=== PATIENT | male | born 1970 | race African-American/Black ===

== ENCOUNTER 2017-10-26 09:22 | Emergency (ER) | payer OTHER ==
[2017-10-26 09:54] VITALS: TEMP 97.5
[2017-10-26] MEDS ORDERED: methylPREDNISolone SOD SUCCI 125 MG/2 ML VIAL IM STA (10:16)
[2017-10-26] MEDS ORDERED: KETOROLAC 60 MG/2 ML VIAL IM STA (10:16)
--- NOTE | 2017-10-26 10:21 | ED ---
General Adult HPI - General Chief complaint: Extremity Problem,Nontraumatic Stated complaint: Knee pain Time Seen by Provider: 10/26/17 09:54 Source: patient, RN notes reviewed, old records reviewed Mode of arrival: ambulatory Limitations: no limitations - History of Present Illness Initial comments: Patient 47-year-old male who presents emergency room today with chief complaint of a gout flare. He states that he's had pain over the last 2 days to the left knee. He states he's felt pain like this in the past to this knee with a gout infection. Patient states that he did have lab work believes he was at [facility] a few years ago and he was told that it was gout. Patient states this does feel the same. Patient states he started some ibuprofen with little relief. Patient denies any injury or complaint. Patient denies any recent fever, chills, shortness of breath, chest pain, back pain, abdominal pain , nausea or vomiting, numbness or tingling, headaches or visual changes, or any other complaints. - Related Data Previous Rx's Medication Instructions Recorded Hydrocodone/Acetaminophen [[place] 1 each PO Q6HR PRN #12 tab 10/26/17 5-325] Ibuprofen [Motrin] 800 mg PO Q6HR #30 tab 10/26/17 predniSONE 60 mg PO DAILY 5 Days tab 10/26/17 Allergies Allergy/AdvReac Type Severity Reaction Status Date / Time No Known Allergies Allergy Verified 10/26/17 09:58 Review of Systems ROS Statement: Those systems with pertinent positive or pertinent negative responses have been documented in the HPI. ROS Other: All systems not noted in ROS Statement are negative. Past Medical History Past Medical History: No Reported History Additional Past Medical History / Comment(s): C/O of abd. pain. History of Any Multi-Drug Resistant Organisms: None Reported Past Surgical History: No Surgical Hx Reported Additional Past Surgical History / Comment(s): Bilat. Carpal Tunnel Past Anesthesia/Blood Transfusion Reactions: No Reported Reaction Past Psychological History: No Psychological Hx Reported Smoking Status: Former smoker - Past Family History Mother Family Medical History: No Reported History General Exam - General Exam Comments Initial Comments: General: The patient is awake and alert, in no distress, and does not appear acutely ill. Neck: The neck is supple, there is no tenderness or JVD. Cardiovascular: There is a regular rate and rhythm. No murmur, rub or gallop is appreciated. Respiratory: Lungs are clear to auscultation, respirations are non-labored, breath sounds are equal. No wheezes, stridor, rales, or rhonchi. Musculoskeletal: Increased redness and some warmth to left knee. Pain worse with flexion and extension of the left knee. Sensations are intact pulses 2+ bilaterally. Neurological: A&O x 3. CN II-XII intact, There are no obvious motor or sensory deficits. Coordination appears grossly intact. Speech is normal. Skin: Skin is warm and dry and no rashes or lesions are noted. Psychiatric: Normal mood and affect. Limitations: no limitations Course Vital Signs 10/26/17 09:52 Temperature 97.5 F L Pulse Rate 67 Respiratory 16 Rate Blood Pressure 145/89 O2 Sat by Pulse 98 Oximetry Medical Decision Making - Medical Decision Making Patient states symptoms are consistent with gout that is had in the past. A be given Toradol shot and steroids. Will be discharged home advised continue anti- inflammatory given a few pain pills of [place] Disposition Clinical Impression: Gout flare Disposition: HOME SELF-CARE Condition: Good Instructions: Gout (ED) Additional Instructions: Please use medication as discussed. Please follow-up with family doctor in the next 2 days of symptoms have not improved. Please return to emergency room if the symptoms increase or worsen or for any other concerns. Prescriptions: Hydrocodone/Acetaminophen [[place] 5-325] 1 each PO Q6HR PRN #12 tab PRN Reason: Pain Ibuprofen [Motrin] 800 mg PO Q6HR #30 tab predniSONE 60 mg PO DAILY 5 Days tab Is patient prescribed a controlled substance at d/c from ED?: Yes If prescribed controlled substance>3 days was MAPS reviewed?: No When asked, does pt state using other controlled substances?: No Referrals: Matti Vaca MD [Primary Care Provider] - 1-2 days Time of Disposition: 10:20
[2017-10-26 10:47] VITALS: BP 145/75; PULSE 72; RESP 18
== END 2017-10-26 10:47 | disposition home or self-care (01) ==
LOC: EC 09:22
DX: M10.9 Gout, unspecified (principal); Z87.891 Personal history of nicotine dependence
CPT/HCPCS: 99283; 96372 ×2; J2930; J1885

== ENCOUNTER 2018-07-03 18:56 | Inpatient (IN) | payer OTHER ==
[2018-07-03] MEDS ORDERED: SODIUM CHLORIDE 0.9% 1,000 ML IV STA (19:03)
[2018-07-03] MEDS ORDERED: LIDOCAINE 1% INJ 10MG/ML (20 ML MDV) ONE (19:12)
[2018-07-03 19:21] LABS: Glucose,Whole Blood 139 mg/dL (75-99)
[2018-07-03] MEDS ORDERED: HEPARIN SODIUM,PORCINE 5,000 UNIT/ML 1 ML VIAL IV STA (19:26)
[2018-07-03] MEDS ORDERED: IV FLUID CONTINUATION 950 ML IV ONE (19:40)
[2018-07-03] MEDS ORDERED: MIDAZOLAM 2 MG/2 ML VIAL IVP ONE (19:48)
[2018-07-03] MEDS ORDERED: fentaNYL (PF) 50 MCG/ML 2 ML AMP ONE (19:50)
[2018-07-03] MEDS ORDERED: LIDOCAINE 1% (PF) 10MG/ML VIAL SQ ONE (19:51)
[2018-07-03] MEDS ORDERED: fentaNYL (PF) 50 MCG/ML 2 ML AMP IVP ONE (19:52)
[2018-07-03 20:02] LABS: Basophils # (A) 0.1 k/uL (0-0.2); Basophils % (A) 0 %; Eosinophils # (A) 0.4 k/uL (0-0.7); Eosinophils % (A) 3 %; HCT 44.4 % (39.0-53.0); HGB 14.9 gm/dL (13.0-17.5); Lymphocytes # (A) 2.8 k/uL (1.0-4.8); Lymphocytes % (A) 20 %; MCH 30.8 pg (25.0-35.0); MCHC 33.5 g/dL (31.0-37.0); MCV 92.1 fL (80.0-100.0); Mean Platelet Volume 7.1; Monocytes # (A) 0.7 k/uL (0-1.0); Monocytes % (A) 5 %; Neutrophils # (A) 10.3 k/uL (1.3-7.7); Neutrophils % (A) 72 %; Platelet Count 295 k/uL (150-450); RBC 4.82 m/uL (4.30-5.90); RDW 14.2 % (11.5-15.5); WBC 14.5 k/uL (3.8-10.6)
--- NOTE | 2018-07-03 20:04 | XR ---
EXAMINATION TYPE: XR chest 1V portable DATE OF EXAM: 07/03/2018 COMPARISON: NONE HISTORY: Chest pain TECHNIQUE: Single frontal view of the chest is obtained. FINDINGS: There is no heart failure nor confluent pneumonic infiltrate. Costophrenic angles are alona r. Bony thorax is intact. IMPRESSION: Normal chest.
--- NOTE | 2018-07-03 20:07 | ED ---
General Adult HPI - General Chief complaint: Chest Pain Stated complaint: STEMI Time Seen by Provider: 07/03/18 18:56 Source: patient, RN notes reviewed Mode of arrival: EMS Limitations: no limitations - History of Present Illness Initial comments: This is a 47-year-old male who presents emergency department for possible STEMI. Patient had given plasma about a half hour before he started having symptoms. After half an hour he started having some lightheadedness almost passed out he came very diaphoretic and felt tingly in both arms. EMS arrived on scene they did an EKG they thought he had ST segment elevation in V1 and V2 and V3. Patient was given aspirin and nitroglycerin. Patient in route started feeling a little better but never experienced any chest pain though he thought he was given a pass out multiple times. Patient denies any drug abuse except occasional marijuana. Patient denies any recent drinking. Patient denies any diabetes high blood pressure or high cholesterol. Patient does smoke cigarettes. Patient denies any palpitations. Patient denies any recent fever chills or cough per patient denies abdominal pain patient denies nausea vomiting diarrhea. Patient denies any headache patient denies numbness weakness. Patient states currently he is feeling a little bit better. - Related Data Home Medications Medication Instructions Recorded Confirmed Cyclobenzaprine [Flexeril] 10 mg PO TID PRN 07/03/18 07/03/18 Hydrocodone/Acetaminophen [[place] 1 tab PO TID PRN 07/03/18 07/03/18 5-325] Ibuprofen [Motrin] 800 mg PO Q6HR PRN 07/03/18 07/03/18 Allergies Allergy/AdvReac Type Severity Reaction Status Date / Time No Known Allergies Allergy Verified 07/03/18 19:04 Review of Systems ROS Statement: Those systems with pertinent positive or pertinent negative responses have been documented in the HPI. ROS Other: All systems not noted in ROS Statement are negative. Past Medical History Past Medical History: No Reported History Additional Past Medical History / Comment(s): C/O of abd. pain. History of Any Multi-Drug Resistant Organisms: None Reported Past Surgical History: No Surgical Hx Reported Additional Past Surgical History / Comment(s): Bilat. Carpal Tunnel Past Anesthesia/Blood Transfusion Reactions: No Reported Reaction Past Psychological History: No Psychological Hx Reported Smoking Status: Current every day smoker Past Alcohol Use History: None Reported Past Drug Use History: Cocaine, Marijuana - Past Family History Mother Family Medical History: No Reported History General Exam - General Exam Comments Initial Comments: GENERAL: Patient is well-developed and well-nourished. Patient is nontoxic and well- hydrated and is in mild distress. ENT: Neck is soft and supple. No significant lymphadenopathy is noted. Oropharynx is clear. Moist mucous membranes. Neck has full range of motion without eliciting any pain. EYES: The sclera were anicteric and conjunctiva were pink and moist. Extraocular movements were intact and pupils were equal round and reactive to light. Eyelids were unremarkable. PULMONARY: Unlabored respirations. Good breath sounds bilaterally. No audible rales rhonchi or wheezing was noted. CARDIOVASCULAR: There is a regular rate and rhythm without any murmurs gallops or rubs. ABDOMEN: Soft and nontender with normal bowel sounds. No palpable organomegaly was noted. There is no palpable pulsatile mass. SKIN: Skin is clear with no lesions or rashes and otherwise unremarkable. NEUROLOGIC: Patient is alert and oriented x3. Cranial nerves II through XII are grossly intact. Motor and sensory are also intact. Normal speech, volume and content. Symmetrical smile. MUSCULOSKELETAL: Normal extremities with adequate strength and full range of motion. No lower extremity swelling or edema. No calf tenderness. LYMPHATICS: No significant lymphadenopathy is noted PSYCHIATRIC: Normal psychiatric evaluation. Limitations: no limitations Course Vital Signs 07/03/18 07/03/18 07/03/18 18:57 19:03 19:15 Temperature 98.0 F Pulse Rate 80 68 70 Respiratory 20 18 16 Rate Blood Pressure 112/64 104/65 121/68 O2 Sat by Pulse 98 97 Oximetry 07/03/18 19:27 Temperature Pulse Rate 80 Respiratory 20 Rate Blood Pressure 124/75 O2 Sat by Pulse 996 H Oximetry Medical Decision Making - Medical Decision Making EMS called a STEMI and I sent the EKG at that point time I called a STEMI overhead spoke with Dr. Lex Burnett came down to see the patient after he was in the emergency department about 5 minutes. Patient was never expressing any chest pain in the emergency department. EKG shows normal sinus rhythm at 80 bpm SD interval is 150 QRS is 92 QT interval is 426 QTC is 491. Patient's EKG shows some slight ST segment elevation V1 and V2. Second EKG was done and the patient was in the emergency pertinent for a while it showed a normal sinus rhythm at 74 bpm SD interval is 150 QRS 98 QT interval 432 QTC is 479. Patient's EKG shows some increased ST segment elevation V1 and V2 seems to be about the same and very slight elevation in V3. At this point time Dr. Burnett decided to take patient to the [facility]. Chest x-ray shows no acute abnormality. I spoke with Dr. Vaca he agreed to admit the patient admitted the patient. Patient received heparin bolus in the emergency department. - Lab Data Result diagrams: 07/03/18 19:50 Lab Results 07/03/18 07/03/18 07/03/18 Range/Units 19:03 19:50 19:50 WBC 14.5 H (3.8-10.6) k/uL RBC 4.82 (4.30-5.90) m/uL Hgb 14.9 (13.0-17.5) gm/dL Hct 44.4 (39.0-53.0) % MCV 92.1 (80.0-100.0) fL MCH 30.8 (25.0-35.0) pg MCHC 33.5 (31.0-37.0) g/dL RDW 14.2 (11.5-15.5) % Plt Count 295 (150-450) k/uL Neutrophils % 72 % Lymphocytes % 20 % Monocytes % 5 % Eosinophils % 3 % Basophils % 0 % Neutrophils # 10.3 H (1.3-7.7) k/uL Lymphocytes # 2.8 (1.0-4.8) k/uL Monocytes # 0.7 (0-1.0) k/uL Eosinophils # 0.4 (0-0.7) k/uL Basophils # 0.1 (0-0.2) k/uL PT 10.8 (9.0-12.0) sec INR 1.0 (<1.2) APTT 48.5 H (22.0-30.0) sec POC Glucose (mg/dL) 139 H (75-99) mg/dL POC Glu Teletypist ID Joesph Jules Critical Care Time Critical Care Time: Yes Total Critical Care Time: 35 Disposition Clinical Impression: Acute ischemic heart disease Disposition: ADMITTED IP TO THIS HOSP Referrals: Matti Vaca MD [Primary Care Provider] - 1-2 days Time of Disposition: 20:06
[2018-07-03] MEDS ORDERED: IOPAMIDOL-370 50ML BTL INJ ONE (20:08)
[2018-07-03] MEDS ORDERED: IOPAMIDOL-370 100ML BTL INJ ONE (20:08)
--- NOTE | 2018-07-03 20:10 | CONS ---
CONSULTATION DATE OF SERVICE: 07/03/2018 Mr. Phong Almonte is a 47-year-old gentleman who works for [employer]. He went and gave some plasma donation today and after that he went home and had something to eat and then he felt very dizzy, lightheaded, woozy, near-syncopal, called 911 and EMS arrived on site and EKG revealed ST-elevation in leads V1 and V2. The EKG was transmitted and I came in to see the patient in the emergency room. Throughout the event, patient never had any chest discomfort. After arrival, a repeat EKG suggested more of early repolarization type changes in leads V1, V2 with J-point prominence and elevation as well. However, after 10 minutes I repeated another EKG and this revealed more of precordial T-wave inversions. Clinical picture did not suggests any angina, but the EKG changes and the near-syncopal episode with bradycardia, hypotension seems like a vasovagal episode which may have precipitated some myocardial ischemia. The patient was administered IV fluids and his blood pressure came up to 120/80, his symptoms resolved. He felt better. In view of his EKG changes and episode of acute vasovagal following plasma donation, I am recommending coronary angiography. It is quite possible that his acute vasovagal episode with hypotension, bradycardia may have precipitated some ischemia. However, patient does not have ST-elevation NV. His initial EKG revealed J-point prominence with early repolarization changes and subsequent EKG revealed some mild T-wave inversion. His labs are pending. I am taking him to the cardiac lab[facility]. I spoke to the patient about the rationale, risks, benefits, options and also spoke to his girlfriend. Both of them understand and wish to proceed with the procedure. PAST MEDICAL HISTORY: Unremarkable for any hypertension, diabetes, myocardial infarction or CVA. He has a history of marijuana use that he uses occasionally. He has had previous carpal tunnel surgery. ALLERGIES: NONE. MEDICATIONS: He takes Motrin occasionally. PHYSICAL EXAMINATION: Blood pressure 121/78. Pulse rate is about 70. HEENT: Unremarkable. Fundus was not examined by me. Neck is supple. No JVD. I do not hear a carotid bruit. There is no thyromegaly. Heart exam reveals S1, S2 heard normally. No significant rub, murmur or gallop. Lungs are clear. Abdomen is soft, nontender. Lower extremities reveal palpable pulses. No edema. Central nervous system is normal. EKG revealed sinus mechanism initially with precordial V1, V2 J-point prominence and early repolarization type picture with nonspecific T-wave changes. Repeat EKG revealed more of precordial T-wave changes. IMPRESSION: 1. Probable acute ischemic syndrome precipitated by recent plasma donation followed by vasovagal episode. No evidence of any chest discomfort, but he does have EKG changes suggestive of ischemia, but not ST-elevation NV. 2. History of marijuana use. RECOMMENDATION: I am recommending IV fluids, IV heparin 4000 units. Aspirin 325 mg was given. We will proceed with cardiac catheterization. Based on findings, I will make recommendations. Thank you very much for the consult. JULIEN / YESSICAN: [id number] /
[2018-07-03 20:11] LABS: Partial Thromboplastin Time 48.5 sec (22.0-30.0); Prothrombin Time 10.8 sec (9.0-12.0)
[2018-07-03 20:13] LABS: ALT 47 U/L (21-72); AST 41 U/L (17-59); Albumin 2.9 g/dL (3.5-5.0); Alkaline Phosphatase 57 U/L (38-126); Anion Gap 4 mmol/L; Blood Urea Nitrogen 13 mg/dL (9-20); Calcium 7.2 mg/dL (8.4-10.2); Carbon Dioxide 24 mmol/L (22-30); Chloride 113 mmol/L (98-107); Glucose 97 mg/dL (74-99); Magnesium 1.9 mg/dL (1.6-2.3); Potassium 3.5 mmol/L (3.5-5.1); Sodium 141 mmol/L (137-145); Total Bilirubin 0.4 mg/dL (0.2-1.3); Total Protein 4.8 g/dL (6.3-8.2)
[2018-07-03] MEDS ORDERED: TEMAZEPAM 15 MG CAP PO PRN (20:27)
[2018-07-03] MEDS ORDERED: Potassium Replacement Protocol 1 EACH MISC MISCELLANE PRN (20:36)
[2018-07-03 20:39] LABS: Creatine Kinase MB 6.7 ng/mL (0.0-2.4); Troponin I <0.012 ng/mL (0.000-0.034)
[2018-07-03 20:47] VITALS: BMI 34.1
--- NOTE | 2018-07-03 20:52 | CC ---
CARDIAC CATHETERIZATION REPORT DATE OF SERVICE: 07/03/2018 PROCEDURE: Left heart catheterization, coronary angiography and left ventriculography. PERFORMED BY: Dr. Tanvir Burnett. CLINICAL INFORMATION: Mr. Phong Almonte is a 47-year-old gentleman admitted through the emergency room with an episode of vasovagal syncope, dehydration and near-syncopal spell requiring IV fluids. He also demonstrated EKG changes without angina. He had initially a mild ST-elevation suggestive more of an early repolarization type picture and subsequently had T-wave inversion. Given his circumstances of presentation with consideration that he may have an acute ischemic syndrome precipitated by vasovagal episode, he was advised coronary angiography. Rationale, risks, benefits, options were explained to the patient and his girlfriend. PROCEDURE NOTE: Under local anesthesia and strict aseptic precautions, a 6-British introducer was placed in the right femoral artery. Using standard Breonna catheters I performed coronary angiography and a pigtail catheter was used to perform an LV-gram. Catheter and sheath was taken out and Angio-Seal device used to secure hemostasis and he was sent to the room in stable condition. CARDIAC CATHETERIZATION FINDINGS: The left ventricular end-diastolic pressure was about 14-15 mmHg without any gradient across the aortic valve. CORONARY ANGIOGRAPHY FINDINGS: RIGHT CORONARY ARTERY: A nondominant, probably codominant vessel has about a 35% proximal lesion at a bend, and then it distally gives off what seems to be a fair-sized PLV, but PDA is almost vestigial. There is no significant disease other than a 35% proximal narrowing located at a bend in the codominant RCA. LEFT MAIN CORONARY ARTERY: This is a very long vessel, free of significant disease, that bifurcates into LAD and circumflex. Left main is free of significant disease. LEFT ANTERIOR DESCENDING CORONARY ARTERY: Good-caliber vessel extends along the anterior wall and gives off several septal branches, small diagonal branches proximally, and in the distal portion it curves over the apex and provides the PDA portion of the LAD. The LAD is very large in caliber and distribution. The distal one fourth of the LAD actually represents the PDA territory and provides the septal branches that seem to come off both from the LAD proximally as well as from the last segment that seems to be in the PDA distribution. No significant disease is noted. LEFT POSTERIOR CIRCUMFLEX CORONARY ARTERY: Nondominant vessel of fair caliber, gives off 2 obtuse marginals, runs in the AV groove. Overall distribution and caliber of the vessel is smaller. No significant disease noted. This is a codominant circumflex system. LEFT VENTRICULOGRAM: This was performed in 30-degree BAUTISTA projection and revealed a left ventricle which is of normal size with good systolic function. Ejection fraction is 60% without mitral regurgitation. FINAL IMPRESSION: This patient has a codominant system with the PDA branch actually coming from the distal LAD. LAD is a very large, disease-free system. Left main, LAD, circumflex are free of significant disease. RCA has a 35% proximal lesion. Filling pressures are mildly elevated. Ejection fraction is 60% without mitral regurgitation. RECOMMENDATIONS: I am recommending medical therapy with risk factor modification and cessation of marijuana use. The patient will be going to the telemetry unit and possible discharge tomorrow. Findings were discussed with the patient and . He was advised risk factor modification and he was sent to the room in a stable condition. Moderate conscious sedation time was 20 minutes. Patient was administered Versed and fentanyl. His oxygen saturation and hemodynamics, EKG were monitored closely. MMODL / IJN: [id number] /
[2018-07-03 21:03] LABS: Creatine Kinase 1023 U/L (55-170)
[2018-07-03] MEDS: HEPARIN SODIUM,PORCINE 5,000 UNIT/ML 1 ML VIAL SQ SCH (21:17)
[2018-07-03] MEDS: POTASSIUM CHLORIDE ER 20 MEQ TAB.ER PO SCH ×2 (21:18→22:54)
[2018-07-03] MEDS: SODIUM CHLORIDE 0.9% 1,000 ML IV SCH (21:19)
[2018-07-03] MEDS ORDERED: POTASSIUM CHLORIDE ER 20 MEQ TAB.ER PO SCH (22:00)
[2018-07-04] MEDS: SODIUM CHLORIDE 0.9% 1,000 ML IV SCH ×2 (05:24→11:49)
[2018-07-04 07:30] LABS: Basophils # (A) 0.1 k/uL (0-0.2); Basophils % (A) 1 %; Eosinophils # (A) 0.3 k/uL (0-0.7); Eosinophils % (A) 3 %; HCT 43.9 % (39.0-53.0); HGB 14.3 gm/dL (13.0-17.5); Lymphocytes # (A) 2.3 k/uL (1.0-4.8); Lymphocytes % (A) 23 %; MCH 30.6 pg (25.0-35.0); MCHC 32.5 g/dL (31.0-37.0); MCV 94.1 fL (80.0-100.0); Mean Platelet Volume 7.4; Monocytes # (A) 0.5 k/uL (0-1.0); Monocytes % (A) 5 %; Neutrophils # (A) 6.5 k/uL (1.3-7.7); Neutrophils % (A) 66 %; Platelet Count 281 k/uL (150-450); RBC 4.67 m/uL (4.30-5.90); RDW 14.3 % (11.5-15.5); WBC 9.8 k/uL (3.8-10.6)
[2018-07-04] MEDS ORDERED: PANTOPRAZOLE 40 MG TABLET PO SCH (07:30)
[2018-07-04 07:59] LABS: Anion Gap 3 mmol/L; Blood Urea Nitrogen 15 mg/dL (9-20); Calcium 8.2 mg/dL (8.4-10.2); Carbon Dioxide 24 mmol/L (22-30); Chloride 112 mmol/L (98-107); Glucose 94 mg/dL (74-99); Potassium 4.5 mmol/L (3.5-5.1); Sodium 139 mmol/L (137-145)
[2018-07-04] MEDS: HEPARIN SODIUM,PORCINE 5,000 UNIT/ML 1 ML VIAL SQ SCH (08:11)
[2018-07-04 08:19] VITALS: RESP 16
--- NOTE | 2018-07-04 08:19 | P.HPIM ---
History of Present Illness H&P Date: 07/04/18 Chief Complaint: Chest pain This is a history of physical and a 47-year-old black male who came in with sudden onset chest pain after donating plasma. He states that he typically drinks much fluid prior to getting plasma but didn't drink as much as normal. The patient started having significant chest pressure with substernal and did have some radiation. Evaluation emergency room did show possible EKG changes and he was brought into the cardiac [facility] because of possible ST changes. Cardiac catheterization did not show significant issue and the patient is now seen in recovery. He has an underlying history of chronic pain due to foot fracture in the remote past. Otherwise, significant DJD. Review of Systems Constitutional: Denies chills, Denies fever Eyes: denies blurred vision, denies pain Ears, nose, mouth and throat: Denies headache, Denies sore throat Cardiovascular: Reports as per HPI Respiratory: Denies cough Gastrointestinal: Denies abdominal pain, Denies diarrhea, Denies nausea, Denies vomiting Musculoskeletal: Denies myalgias Past Medical History Past Medical History: No Reported History Additional Past Medical History / Comment(s): C/O of abd. pain. History of Any Multi-Drug Resistant Organisms: None Reported Past Surgical History: No Surgical Hx Reported Additional Past Surgical History / Comment(s): Bilat. Carpal Tunnel Past Anesthesia/Blood Transfusion Reactions: No Reported Reaction Past Psychological History: No Psychological Hx Reported Smoking Status: Former smoker Past Alcohol Use History: None Reported Additional Past Alcohol Use History / Comment(s): Smoked 1 pack per week for 8 yrs. Quit 4 months ago. Past Drug Use History: Cocaine, Marijuana - Past Family History Mother Family Medical History: No Reported History Medications and Allergies Home Medications Medication Instructions Recorded Confirmed Type Cyclobenzaprine [Flexeril] 10 mg PO TID PRN 07/03/18 07/03/18 History Hydrocodone/Acetaminophen [[place] 1 tab PO TID PRN 07/03/18 07/03/18 History 5-325] Ibuprofen [Motrin] 800 mg PO Q6HR PRN 07/03/18 07/03/18 History Allergies Allergy/AdvReac Type Severity Reaction Status Date / Time No Known Allergies Allergy Verified 07/03/18 19:04 Physical Exam Vitals: Vital Signs Temp Pulse Pulse Resp BP BP Pulse Ox 07/04/18 04:00 97.9 F 72 18 101/66 95 07/03/18 23:21 75 18 139/68 98 07/03/18 20:24 98 F 72 18 132/77 97 07/03/18 19:27 80 20 124/75 996 H 07/03/18 19:15 70 16 121/68 07/03/18 19:03 68 18 104/65 97 07/03/18 18:57 98.0 F 80 20 112/64 98 Intake and Output 07/03/18 07/04/18 07/04/18 22:59 06:59 14:59 Intake Total 150 500 Output Total 500 Balance -350 500 Intake: IV 150 500 Sodium Chloride 0.9% 1, 500 000 ml @ 100 mls/hr IV . Q10H NATASHA Rx#:[id number] Output: Urine 500 Other: # Voids 1 Weight 98.883 kg 96.6 kg - Constitutional General appearance: no acute distress - EENT Eyes: EOMI - Neck Neck: no lymphadenopathy - Respiratory Respiratory: bilateral: CTA - Cardiovascular Rhythm: regular Heart sounds: normal: S1, S2 Abnormal Heart Sounds: no S3 Gallop - Gastrointestinal General gastrointestinal: soft, no tenderness Results CBC & Chem 7: 07/04/18 07:00 07/04/18 07:00 Labs: Abnormal Lab Results - Last 24 Hours (Table) 07/03/18 07/03/18 07/03/18 Range/Units 19:03 19:50 19:50 WBC 14.5 H (3.8-10.6) k/uL Neutrophils # 10.3 H (1.3-7.7) k/uL APTT (22.0-30.0) sec Chloride 113 H (98-107) mmol/L POC Glucose (mg/dL) 139 H (75-99) mg/dL Calcium 7.2 L (8.4-10.2) mg/dL Total Creatine Kinase (55-170) U/L CK-MB (CK-2) (0.0-2.4) ng/mL Total Protein 4.8 L (6.3-8.2) g/dL Albumin 2.9 L (3.5-5.0) g/dL 07/03/18 07/03/18 07/04/18 Range/Units 19:50 19:50 07:00 WBC (3.8-10.6) k/uL Neutrophils # (1.3-7.7) k/uL APTT 48.5 H (22.0-30.0) sec Chloride 112 H (98-107) mmol/L POC Glucose (mg/dL) (75-99) mg/dL Calcium 8.2 L (8.4-10.2) mg/dL Total Creatine Kinase 1023 H* (55-170) U/L CK-MB (CK-2) 6.7 H (0.0-2.4) ng/mL Total Protein (6.3-8.2) g/dL Albumin (3.5-5.0) g/dL Thrombosis Risk Factor Assmnt - Choose All That Apply Any of the Below Risk Factors Present?: Yes Each Factor Represents 1 point: Obesity (BMI >25) Other Risk Factors: No Other congenital or acquired thrombophilia - If yes, enter type in comment: No Thrombosis Risk Factor Assessment Total Risk Factor Score: 1 Thrombosis Risk Factor Assessment Level: Low Risk Assessment and Plan (1) Acute ischemic heart disease Current Visit: Yes Status: Acute Code(s): I24.9 - ACUTE ISCHEMIC HEART DISEASE, UNSPECIFIED SNOMED Code(s): 804156744 Plan: Anticipate discharge when cleared by cardiology. Wound control discussed with the patient. Follow-up with me in about 7 days. Time with Patient: Less than 30
[2018-07-04] MEDS ORDERED: ASPIRIN 81 MG PO SCH (09:00)
[2018-07-04 12:29] VITALS: BP 109/59; PULSE 67; TEMP 97.8
--- NOTE | 2018-07-04 15:14 | P.PN ---
Subjective Progress Note Date: 07/04/18 This is a 47-year-old -[place] gentleman who initially presented to the hospital with symptoms of dizziness and lightheadedness with near syncope. He has been donating plasma as an outpatient twice a week, he did donate plasma prior to this episode occurring. On EMS arrival the EKG showed ST elevation in leads V1 and V2, patient was taken to the cardiac catheterization lab patient had a codominant system with the PDA branch coming from the distal LAD. The LAD was a large disease-free system, left main LAD and circumflex were free of any significant disease. RCA had a 35% proximal lesion, filling pressures mildly elevated. Ejection fraction 60% without any evidence of mitral regurgitation. Medical therapy was advised to the patient. Patient was seen and examined this morning, blood pressure 122/60 with a heart rate in the 70s, 95% on room air. Patient was seen and examined this morning, denied any chest pain or difficulty in breathing. Patient is quite eager to be discharged home today. Objective - Vital Signs Vital signs: Vital Signs Temp 97.8 F 07/04/18 12:27 Pulse 67 07/04/18 12:27 Resp 16 07/04/18 12:27 BP 109/59 07/04/18 12:27 Pulse Ox 99 07/04/18 12:27 Intake & Output 07/03/18 07/04/18 07/04/18 18:59 06:59 18:59 Intake Total 650 360 Output Total 500 Balance 150 360 Weight 98.883 kg 96.6 kg Intake: IV 650 Sodium Chloride 0.9% 1, 500 000 ml @ 100 mls/hr IV . Q10H [facility] Rx#:[id number] Oral 360 Output: Urine 500 Other: # Voids 1 - Exam PHYSICAL EXAMINATION: GENERAL: 47-year-old -[place] male in no acute distress at the time of my examination HEENT: Head is atraumatic, normocephalic. Pupils equal, round. Sclera anicteric. Conjunctiva are clear. Mucous membranes of the mouth are moist. Neck is supple. There is no elevated jugular venous pressure. No carotid bruit is heard. HEART EXAMINATION: Heart S1, S2 normal. No murmur or gallop heard. CHEST EXAMINATION: Lungs are clear to auscultation and precussion. No chest wall tenderness is noted on palpation or with deep breathing. ABDOMEN: Soft, nontender. Bowel sounds are heard. No organomegaly noted. EXTREMITIES: 2+ peripheral pulses with no evidence of peripheral edema and no calf tenderness noted. Right groin soft, no evidence of any hematoma NEUROLOGIC patient is awake, alert and oriented 3 . . - Labs CBC & Chem 7: 07/04/18 07:00 07/04/18 07:00 Labs: Abnormal Lab Results - Last 24 Hours (Table) 07/03/18 07/03/18 07/03/18 Range/Units 19:03 19:50 19:50 WBC 14.5 H (3.8-10.6) k/uL Neutrophils # 10.3 H (1.3-7.7) k/uL APTT (22.0-30.0) sec Chloride 113 H (98-107) mmol/L POC Glucose (mg/dL) 139 H (75-99) mg/dL Calcium 7.2 L (8.4-10.2) mg/dL Total Creatine Kinase (55-170) U/L CK-MB (CK-2) (0.0-2.4) ng/mL Total Protein 4.8 L (6.3-8.2) g/dL Albumin 2.9 L (3.5-5.0) g/dL 07/03/18 07/03/18 07/04/18 Range/Units 19:50 19:50 07:00 WBC (3.8-10.6) k/uL Neutrophils # (1.3-7.7) k/uL APTT 48.5 H (22.0-30.0) sec Chloride 112 H (98-107) mmol/L POC Glucose (mg/dL) (75-99) mg/dL Calcium 8.2 L (8.4-10.2) mg/dL Total Creatine Kinase 1023 H* (55-170) U/L CK-MB (CK-2) 6.7 H (0.0-2.4) ng/mL Total Protein (6.3-8.2) g/dL Albumin (3.5-5.0) g/dL Assessment and Plan Plan: Assessment and plan #1 symptoms of weakness and dizziness, initial EKG showed questionable ST elevation and for that reason patient was taken to the cardiac catheterization lab where he was not found to have any significant obstructive coronary artery disease. Plan Patient may be discharged home today from cardiology's perspective, follow-up appointment with Dr. Hardeep Burnett in the office post discharge. DNP note has been reviewed, I agree with a documented findings and plan of care. Patient was seen and examined.
== END 2018-07-04 14:17 | disposition home or self-care (01) | DRG 287 ==
LOC: EC 18:56 → 3SCARD 20:08
PROVIDERS: ADMIT Family Medicine; ATTEND Family Medicine
PROC: B2111ZZ Fluoroscopy of Multiple Coronary Arteries using Low Osmolar Contrast (ICD-10-PCS; 2018-07-03)
PROC: B2151ZZ Fluoroscopy of Left Heart using Low Osmolar Contrast (ICD-10-PCS; 2018-07-03)
PROC: 4A023N7 Measurement of Cardiac Sampling and Pressure, Left Heart, Percutaneous Approach (ICD-10-PCS; principal; 2018-07-03 18:59)
DX: I24.9 Acute ischemic heart disease, unspecified (principal); F17.210 Nicotine dependence, cigarettes, uncomplicated; M19.90 Unspecified osteoarthritis, unspecified site; G89.29 Other chronic pain; M79.673 Pain in unspecified foot
CPT/HCPCS: 36415; 71045; 80048; 80053; 82550; 82553; 83735; 84132; 84484; 85025; 85379; 85610; 85730; 93005; 93458; 96374; 99291

== ENCOUNTER 2018-07-05 13:21 | Emergency (ER) | payer OTHER ==
[2018-07-05 13:25] VITALS: TEMP 98
[2018-07-05] MEDS ORDERED: ONDANSETRON 4 MG/2 ML VIAL IVP STA (13:42)
[2018-07-05] MEDS ORDERED: SODIUM CHLORIDE 0.9% 1,000 ML IV ONE (13:42)
[2018-07-05 14:12] LABS: Basophils # (A) 0.1 k/uL (0-0.2); Basophils % (A) 1 %; Eosinophils # (A) 0.2 k/uL (0-0.7); Eosinophils % (A) 3 %; HCT 45.8 % (39.0-53.0); HGB 14.6 gm/dL (13.0-17.5); Lymphocytes # (A) 2.7 k/uL (1.0-4.8); Lymphocytes % (A) 29 %; MCH 29.4 pg (25.0-35.0); MCHC 31.9 g/dL (31.0-37.0); Mean Platelet Volume 6.8; Monocytes # (A) 0.3 k/uL (0-1.0); Monocytes % (A) 4 %; Neutrophils # (A) 5.7 k/uL (1.3-7.7); Neutrophils % (A) 62 %; Platelet Count 312 k/uL (150-450); RBC 4.98 m/uL (4.30-5.90); RDW 14.1 % (11.5-15.5); WBC 9.2 k/uL (3.8-10.6)
--- NOTE | 2018-07-05 14:18 | ED ---
General Adult HPI - General Chief complaint: Chest Pain Stated complaint: Chest pain Time Seen by Provider: 07/05/18 13:28 Source: patient, RN notes reviewed, old records reviewed Mode of arrival: ambulatory Limitations: no limitations - History of Present Illness Initial comments: 47-year-old male presenting with chief complaint of nausea. Patient was seen in this hospital 2 days prior with EKG changes and lightheadedness, nausea vomiting. He was taken for emergent heart catheterization given the EKG changes. This was normal according to the patient, no interventions. He was discharged home yesterday. Today he felt some nausea, was uncertain if this was normal after his heart cath. Denies central chest pain. He had 1 minute of very mild right-sided chest pain which resolved without any treatment. This was nonradiating right sided chest pain. He has not vomited. He has been hungry with normal appetite, eating normally. No lightheadedness. No dizziness. No focal numbness or weakness. Patient's symptoms 2 days prior began after plasma donation, he was donating plasma twice a week for approximately one year. - Related Data Home Medications Medication Instructions Recorded Confirmed Hydrocodone/Acetaminophen [[place] 1 tab PO QID PRN 07/03/18 07/05/18 5-325] Ibuprofen [Motrin] 800 mg PO Q6HR PRN 07/03/18 07/05/18 Loratadine [Claritin] 10 mg PO DAILY PRN 07/05/18 07/05/18 Allergies Allergy/AdvReac Type Severity Reaction Status Date / Time No Known Allergies Allergy Verified 07/05/18 14:01 Review of Systems ROS Statement: Those systems with pertinent positive or pertinent negative responses have been documented in the HPI. ROS Other: All systems not noted in ROS Statement are negative. Past Medical History Past Medical History: No Reported History, Coronary Artery Disease (CAD) Additional Past Medical History / Comment(s): C/O of abd. pain. History of Any Multi-Drug Resistant Organisms: None Reported Past Surgical History: No Surgical Hx Reported Additional Past Surgical History / Comment(s): Bilat. Carpal Tunnel. Cardiac cath. Past Anesthesia/Blood Transfusion Reactions: No Reported Reaction Past Psychological History: No Psychological Hx Reported Smoking Status: Never smoker Past Alcohol Use History: Rare Past Drug Use History: None Reported - Past Family History Mother Family Medical History: No Reported History General Exam Limitations: no limitations General appearance: alert, in no apparent distress Head exam: Present: atraumatic, normocephalic Eye exam: Present: normal appearance, PERRL ENT exam: Present: mucous membranes dry Neck exam: Present: normal inspection. Absent: tenderness, meningismus Respiratory exam: Present: normal lung sounds bilaterally. Absent: respiratory distress, wheezes Cardiovascular Exam: Present: regular rate, normal rhythm GI/Abdominal exam: Present: soft. Absent: distended, tenderness Extremities exam: Present: normal inspection, normal capillary refill, other ( Right groin No swelling, no ecchymosis, small arterial puncture site, no pulsatile mass ). Absent: pedal edema Neurological exam: Present: alert, oriented X3 Psychiatric exam: Present: normal affect, normal mood Skin exam: Present: warm, dry, intact Course Vital Signs 07/05/18 13:23 Temperature 98 F Pulse Rate 78 Respiratory 20 Rate Blood Pressure 144/83 O2 Sat by Pulse 99 Oximetry EKG Findings - EKG Comments: EKG Findings:: EKG: Normal sinus rhythm, possible inferior infarct with Q waves in the inferior leads rate of 71, MO interval 154, QRS duration 94, QTC 432. Abnormal EKG however appears unchanged compared to EKG from 2 days earlier. Medical Decision Making - Medical Decision Making 47-year-old male presenting with nausea. Patient is afebrile, stable vital signs, well-appearing. He has been eating normally throughout the day with no abdominal pain. He had 1 minute episode of right-sided chest pain which is mild and resolved without any treatment. No pain at the time my evaluation. Patient has an abnormal EKG which shows Q waves, T wave inversion in the inferior leads, ST segment elevation in V1 and V2 however this appears unchanged from EKG in 2 days prior. He had heart catheterization, this was reviewed, patient had patent coronary arteries, no intervention, only reported lesion was RCA at 35%. No other coronary artery disease. Clinically patient does appear dehydrated, has dry mucous membranes. Laboratory studies obtained, normal CBC, normal CMP, normal urinalysis. Chest x-ray negative for any acute findings. Did reevaluate the patient, vital signs remained stable. He has no complaints, nausea completely resolved. He is eager for discharge. He will return with new or changing symptoms. He will return with vomiting or abdominal pain. Return with chest pain. Return with dyspnea. He will continue to abstain from plasma donation - Lab Data Result diagrams: 07/05/18 14:00 07/05/18 14:00 Lab Results 07/05/18 07/05/18 07/05/18 Range/Units 14:00 14:00 14:00 WBC 9.2 (3.8-10.6) k/uL RBC 4.98 (4.30-5.90) m/uL Hgb 14.6 (13.0-17.5) gm/dL Hct 45.8 (39.0-53.0) % MCV 92.0 (80.0-100.0) fL MCH 29.4 (25.0-35.0) pg MCHC 31.9 (31.0-37.0) g/dL RDW 14.1 (11.5-15.5) % Plt Count 312 (150-450) k/uL Neutrophils % 62 % Lymphocytes % 29 % Monocytes % 4 % Eosinophils % 3 % Basophils % 1 % Neutrophils # 5.7 (1.3-7.7) k/uL Lymphocytes # 2.7 (1.0-4.8) k/uL Monocytes # 0.3 (0-1.0) k/uL Eosinophils # 0.2 (0-0.7) k/uL Basophils # 0.1 (0-0.2) k/uL PT 9.5 (9.0-12.0) sec INR 0.9 (<1.2) APTT 22.5 (22.0-30.0) sec Sodium 140 (137-145) mmol/L Potassium 3.9 (3.5-5.1) mmol/L Chloride 108 H (98-107) mmol/L Carbon Dioxide 29 (22-30) mmol/L Anion Gap 3 mmol/L BUN 12 (9-20) mg/dL Creatinine 0.94 (0.66-1.25) mg/dL Est GFR (CKD-EPI)AfAm >90 (>60 ml/min/1.73 sqM) Est GFR (CKD-EPI)NonAf >90 (>60 ml/min/1.73 sqM) Glucose 91 (74-99) mg/dL Calcium 9.4 (8.4-10.2) mg/dL Magnesium 2.1 (1.6-2.3) mg/dL Total Bilirubin 0.4 (0.2-1.3) mg/dL AST 35 (17-59) U/L ALT 44 (21-72) U/L Alkaline Phosphatase 66 (38-126) U/L Total Protein 6.2 L (6.3-8.2) g/dL Albumin 3.8 (3.5-5.0) g/dL Lipase 59 (23-300) U/L Urine Color Urine Appearance (Clear) Urine pH (5.0-8.0) Ur Specific [place] (1.001-1.035) Urine Protein (Negative) Urine Glucose (UA) (Negative) Urine Ketones (Negative) Urine Blood (Negative) Urine Nitrite (Negative) Urine Bilirubin (Negative) Urine Urobilinogen (<2.0) mg/dL Ur Leukocyte Esterase (Negative) 07/05/18 Range/Units 14:00 WBC (3.8-10.6) k/uL RBC (4.30-5.90) m/uL Hgb (13.0-17.5) gm/dL Hct (39.0-53.0) % MCV (80.0-100.0) fL MCH (25.0-35.0) pg MCHC (31.0-37.0) g/dL RDW (11.5-15.5) % Plt Count (150-450) k/uL Neutrophils % % Lymphocytes % % Monocytes % % Eosinophils % % Basophils % % Neutrophils # (1.3-7.7) k/uL Lymphocytes # (1.0-4.8) k/uL Monocytes # (0-1.0) k/uL Eosinophils # (0-0.7) k/uL Basophils # (0-0.2) k/uL PT (9.0-12.0) sec INR (<1.2) APTT (22.0-30.0) sec Sodium (137-145) mmol/L Potassium (3.5-5.1) mmol/L Chloride (98-107) mmol/L Carbon Dioxide (22-30) mmol/L Anion Gap mmol/L BUN (9-20) mg/dL Creatinine (0.66-1.25) mg/dL Est GFR (CKD-EPI)AfAm (>60 ml/min/1.73 sqM) Est GFR (CKD-EPI)NonAf (>60 ml/min/1.73 sqM) Glucose (74-99) mg/dL Calcium (8.4-10.2) mg/dL Magnesium (1.6-2.3) mg/dL Total Bilirubin (0.2-1.3) mg/dL AST (17-59) U/L ALT (21-72) U/L Alkaline Phosphatase (38-126) U/L Total Protein (6.3-8.2) g/dL Albumin (3.5-5.0) g/dL Lipase (23-300) U/L Urine Color Light Yellow Urine Appearance Clear (Clear) Urine pH 7.0 (5.0-8.0) Ur Specific [place] 1.008 (1.001-1.035) Urine Protein Negative (Negative) Urine Glucose (UA) Negative (Negative) Urine Ketones Negative (Negative) Urine Blood Negative (Negative) Urine Nitrite Negative (Negative) Urine Bilirubin Negative (Negative) Urine Urobilinogen <2.0 (<2.0) mg/dL Ur Leukocyte Esterase Negative (Negative) Disposition Clinical Impression: Nausea Disposition: HOME SELF-CARE Condition: Good Instructions: Acute Nausea and Vomiting (ED) Is patient prescribed a controlled substance at d/c from ED?: No Referrals: Matit Vaca MD [Primary Care Provider] - 1-2 days Time of Disposition: 16:03
[2018-07-05 14:20] LABS: INR 0.9 (<1.2); Partial Thromboplastin Time 22.5 sec (22.0-30.0); Prothrombin Time 9.5 sec (9.0-12.0)
[2018-07-05 14:26] LABS: ALT 44 U/L (21-72); AST 35 U/L (17-59); Albumin 3.8 g/dL (3.5-5.0); Alkaline Phosphatase 66 U/L (38-126); Anion Gap 3 mmol/L; Blood Urea Nitrogen 12 mg/dL (9-20); Calcium 9.4 mg/dL (8.4-10.2); Carbon Dioxide 29 mmol/L (22-30); Chloride 108 mmol/L (98-107); Glucose 91 mg/dL (74-99); Lipase 59 U/L (23-300); Magnesium 2.1 mg/dL (1.6-2.3); Potassium 3.9 mmol/L (3.5-5.1); Sodium 140 mmol/L (137-145); Total Bilirubin 0.4 mg/dL (0.2-1.3); Total Protein 6.2 g/dL (6.3-8.2)
[2018-07-05 14:34] LABS: Appearance,Urine Clear (Clear); Bilirubin,Urine Negative (Negative); Blood,Urine Negative (Negative); Color,Urine Light Yellow; Glucose,Urine (UA) Negative (Negative); Ketones,Urine Negative (Negative); Leukocyte Esterase,Urine Negative (Negative); Nitrite,Urine Negative (Negative); Protein,Urine Negative (Negative); Specific Gravity,Urine 1.008 (1.001-1.035); Urobilinogen,Urine <2.0 mg/dL (<2.0)
--- NOTE | 2018-07-05 15:39 | XR ---
EXAMINATION TYPE: XR chest 2V DATE OF EXAM: 07/05/2018 COMPARISON: Prior chest x-ray 07/03/2018 HISTORY: Chest pain TECHNIQUE: Frontal and lateral views of the chest are obtained. FINDINGS: There is no focal air space opacity, pleural effusion, or pneumothorax seen. The cardiac silhouette size is within normal limits. The osseous structures are intact. There are overlying car diac leads. IMPRESSION: No acute cardiopulmonary process.
[2018-07-05 16:23] VITALS: BP 141/90; PULSE 74; RESP 18
== END 2018-07-05 16:21 | disposition home or self-care (01) ==
LOC: EC 13:21
DX: R11.0 Nausea (principal); R07.89 Other chest pain; Z95.5 Presence of coronary angioplasty implant and graft
CPT/HCPCS: 36415; 93005; 80053; 83690; 83735; 85025; 85610; 85730; 81003; 71046; 99285; 96374; 96361 ×2; J2405

== ENCOUNTER 2018-10-14 13:07 | Emergency (ER) | payer OTHER ==
[2018-10-14 13:57] VITALS: BP 121/81; PULSE 73; TEMP 98
[2018-10-14 14:47] VITALS: RESP 20
[2018-10-14] MEDS ORDERED: DIPH,PERTUS(ACELL)TETVAC-LF 0.5 ML VIAL IM ONE (14:48)
[2018-10-14] MEDS ORDERED: BENZONATATE 100 MG CAP PO STA (14:51)
[2018-10-14] MEDS ORDERED: predniSONE 20 MG TAB PO STA (14:51)
--- NOTE | 2018-10-14 15:06 | XR ---
EXAMINATION TYPE: XR chest 2V DATE OF EXAM: 10/14/2018 COMPARISON: Prior chest x-ray 07/05/2018 HISTORY: Cough, fever, congestion TECHNIQUE: Frontal and lateral views of the chest are obtained. FINDINGS: Patient is rotated. There is no focal air space opacity, pleural effusion, or pneumothorax seen. The cardiac silhouette size is within normal limits. The osseous structures are intact. IMPRESSION: No acute cardiopulmonary process.
--- NOTE | 2018-10-14 15:12 | ED ---
URI HPI - General Chief Complaint: Upper Respiratory Infection Stated Complaint: URI Time Seen by Provider: 10/14/18 14:44 Source: patient Mode of arrival: ambulatory Limitations: no limitations - History of Present Illness Initial Comments: 48-year-old male presents for cough congestion sore throat 2-3 days. Patient states he has had cough congestion sore throat for 2-3 days, he denies fever. He denies any chest pain dyspnea dispensed exertion or lower extremity swelling. He denies neck stiffness headaches. She states he presented to obtain yesica ething for the cough as it is persistent. Patient denies hemoptysis. Remaining review of systems negative, Patient denies any recent back pain, abdominal pain, nausea or vomiting, numbness or tingling, dysuria or hematuria, constipation or diarrhea, headaches or visual changes, or any other complaints. Upon arrival patient is afebrile appearing well no signs of acute distress. - Related Data Home Medications Medication Instructions Recorded Confirmed Hydrocodone/Acetaminophen [[place] 1 tab PO QID PRN 07/03/18 07/05/18 5-325] Ibuprofen [Motrin] 800 mg PO Q6HR PRN 07/03/18 07/05/18 Loratadine [Claritin] 10 mg PO DAILY PRN 07/05/18 07/05/18 Previous Rx's Medication Instructions Recorded Benzonatate [Benzonatate Perle] 100 mg PO BID PRN 7 Days #14 10/14/18 capsule predniSONE 20 mg PO BID 7 Days #14 tab 10/14/18 Allergies Allergy/AdvReac Type Severity Reaction Status Date / Time No Known Allergies Allergy Verified 07/05/18 14:01 Review of Systems ROS Statement: Those systems with pertinent positive or pertinent negative responses have been documented in the HPI. ROS Other: All systems not noted in ROS Statement are negative. Past Medical History Past Medical History: No Reported History Additional Past Medical History / Comment(s): C/O of abd. pain. History of Any Multi-Drug Resistant Organisms: None Reported Past Surgical History: Heart Catheterization Additional Past Surgical History / Comment(s): Bilat. Carpal Tunnel. Cardiac cath. Past Anesthesia/Blood Transfusion Reactions: No Reported Reaction Past Psychological History: No Psychological Hx Reported Smoking Status: Never smoker Past Alcohol Use History: None Reported Past Drug Use History: None Reported - Past Family History Mother Family Medical History: No Reported History General Exam - General Exam Comments Initial Comments: General: The patient is awake and alert, in no distress, and does not appear acutely ill. Eye: +3 mm pupils are equal, round and reactive to light, extra-ocular movements are intact. No nystagmus. There is normal conjunctiva bilaterally. No signs of icterus. No photophobia Ears, nose, mouth and throat: There are moist mucous membranes and no oral lesions. Oropharynx was not erythematous there is no tonsillar enlargement exudates or lesions. Uvula midline. Tympanic membranes are not erythematous or is no effusions bulging or retraction. No tenderness to palpation of the mastoid. No anterior cervical lymphadenopathy. Rhinorrhea, clear and bilateral nares. No tripoding, no drooling. Neck: The neck is supple, there is no tenderness or JVD. No nuchal rigidity negative Brudzinski and Kernig Cardiovascular: There is a regular rate and rhythm. No murmur, rub or gallop is appreciated. Respiratory: Lungs are clear to auscultation, respirations are non-labored, breath sounds are equal. No wheezes, stridor, rales, or rhonchi. No retractions or abdominal breathing. Gastrointestinal: Soft, non-distended, non-tender abdomen without masses or organomegaly noted. There is no rebound or guarding present. Bowel sounds are unremarkable. Musculoskeletal: Normal ROM, no tenderness. Strength 5/5. Sensation intact. Radial pulses equal bilaterally 2+. Neurological: A&O x 3. CN II-XII intact, There are no obvious motor or sensory deficits. Coordination appears grossly intact. Speech appears normal, no muffling. Skin: Skin is warm and dry and no rashes or lesions are noted. No extremity edema Psychiatric: Cooperative Limitations: no limitations Course Vital Signs 10/14/18 10/14/18 13:54 14:47 Temperature 98 F Pulse Rate 73 Respiratory 18 20 Rate Blood Pressure 121/81 O2 Sat by Pulse 100 Oximetry Medical Decision Making - Medical Decision Making Well-appearing 48-year-old male presenting for upper respiratory symptoms. Physical examination unremarkable. Influenza testing negative. No anterior cervical lymphadenopathy exudates or findings consistent for short pharyngitis. Patient denies fever. Patient predominately has cough. Lungs are clear to auscultation. Chest x-ray negative for pneumonia. At this time feel patient has viral upper respiratory infection with cough. Patient appears well nontoxic vital signs within acceptable limits. Patient was given Tessalon Perles, as well as steroid. Patient be discharged with outpatient primary care follow-up. Attending provider Dr. Liz is agreeable patient care pain discharge at this time. Return parameters and outpatient follow-up are discussed with patient prior to discharge. - Lab Data Lab Results 10/14/18 Range/Units 14:47 Influenza Type A RNA Not Detected (Not Detectd) Influenza Type B (PCR) Not Detected (Not Detectd) Disposition Clinical Impression: Viral URI, Cough Disposition: HOME SELF-CARE Condition: Good Instructions (If sedation given, give patient instructions): Upper Respiratory Infection (ED) Additional Instructions: Please use medication as discussed. Please follow-up with family doctor in the next 2 days. Please return to emergency room if the symptoms increase or worsen or for any other concerns. Prescriptions: Benzonatate [Benzonatate Perle] 100 mg PO BID PRN 7 Days #14 capsule PRN Reason: Cough predniSONE 20 mg PO BID 7 Days #14 tab Is patient prescribed a controlled substance at d/c from ED?: No Referrals: Matti Vaca MD [Primary Care Provider] - 1-2 days Time of Disposition: 15:12
== END 2018-10-14 15:17 | disposition home or self-care (01) ==
LOC: EC 13:07
DX: J06.9 Acute upper respiratory infection, unspecified (principal); Z23 Encounter for immunization; Z95.5 Presence of coronary angioplasty implant and graft
CPT/HCPCS: 87502; 71046; 90715; 99283; 90471; J7512

== ENCOUNTER 2019-11-26 11:37 | Observation (INO) | payer OTHER ==
[2019-11-26 12:32] LABS: Basophils # (A) 0.1 k/uL (0-0.2); Basophils % (A) 1 %; Eosinophils # (A) 0.3 k/uL (0-0.7); Eosinophils % (A) 4 %; HCT 44.5 % (39.0-53.0); HGB 14.3 gm/dL (13.0-17.5); Lymphocytes # (A) 2.7 k/uL (1.0-4.8); Lymphocytes % (A) 35 %; MCH 29.3 pg (25.0-35.0); MCHC 32.2 g/dL (31.0-37.0); MCV 90.8 fL (80.0-100.0); Mean Platelet Volume 7.9; Monocytes # (A) 0.4 k/uL (0-1.0); Monocytes % (A) 6 %; Neutrophils % (A) 52 %; Platelet Count 249 k/uL (150-450); WBC 7.7 k/uL (3.8-10.6)
--- NOTE | 2019-11-26 12:35 | XR ---
EXAMINATION TYPE: XR chest 2V DATE OF EXAM: 11/26/2019 COMPARISON: 10/14/2018 HISTORY: 49-year-old male confusion, altered mental status, left-sided numbness today. TECHNIQUE: AP and lateral views FINDINGS: Heart normal size. Aorta and pulmonary vasculature within normal limits. Crowded vascular markings wi th low lung volumes. Hazy lung densities related to overlying soft tissue. No consolidation or pleura l effusion. IMPRESSION: Hypoventilatory changes without definite acute process.
[2019-11-26 12:37] LABS: Partial Thromboplastin Time 23.5 sec (22.0-30.0); Prothrombin Time 10.1 sec (9.0-12.0)
[2019-11-26 12:39] LABS: ALT 35 U/L (4-49); AST 31 U/L (17-59); African American GFR (CKD) >90 (>60 ml/min/1.73 sqM); Albumin 4.3 g/dL (3.5-5.0); Alkaline Phosphatase 67 U/L (38-126); Anion Gap 9 mmol/L; Blood Urea Nitrogen 10 mg/dL (9-20); Calcium 9.5 mg/dL (8.4-10.2); Carbon Dioxide 27 mmol/L (22-30); Chloride 102 mmol/L (98-107); Glucose 97 mg/dL (74-99); Non-African American GFR(CKD) >90 (>60 ml/min/1.73 sqM); Potassium 3.9 mmol/L (3.5-5.1); Sodium 138 mmol/L (137-145); Total Bilirubin 0.4 mg/dL (0.2-1.3); Total Protein 7.2 g/dL (6.3-8.2)
--- NOTE | 2019-11-26 12:45 | CT ---
EXAMINATION TYPE: CT brain wo con for TPA DATE OF EXAM: 11/26/2019 COMPARISON: None HISTORY: 49-year-old male Neuro deficits, Left sided numbness TECHNIQUE: Examination was done in axial plane without intravenous contrast. Coronal and sagittal r econstructions performed. CT DLP: 1099.4 mGycm Automated exposure control for dose reduction was used. FINDINGS: There is no evidence of acute intracranial hemorrhage, acute ischemic changes, mass, mass-effect, or extra-axial fluid collection. There is no effacement of cerebral sulci or basal subarachnoid cister ns. There is no hydrocephalus. There is no midline shift. Amin-white matter distinction is preserv ed. Paranasal sinuses and mastoid air cells well pneumatized. Orbits and globes are intact. IMPRESSION: No acute intracranial abnormality seen.
--- NOTE | 2019-11-26 13:33 | US ---
EXAMINATION TYPE: US venous doppler duplex LE RT DATE OF EXAM: 11/26/2019 12:01 PM COMPARISON: NONE CLINICAL HISTORY: calf pain. SIDE PERFORMED: Right TECHNIQUE: The lower extremity deep venous system is examined utilizing real time linear array sonog fernando with graded compression, doppler sonography and color-flow sonography. VESSELS IMAGED: External Iliac Vein (EIV) Common Femoral Vein Deep Femoral Vein Greater Saphenous Vein * Femoral Vein Popliteal Vein Small Saphenous Vein * Proximal Calf Veins (* superficial vessels) Right Leg: Negative for DVT IMPRESSION: 1. No diagnostic evidence of DVT as visualized.
[2019-11-26] MEDS ORDERED: ASPIRIN 325 MG TAB PO STA (14:17)
--- NOTE | 2019-11-26 14:31 | ED ---
Neuro HPI - General Chief Complaint: Neuro Symptoms/Deficit Stated Complaint: L Sided Numbness Time Seen by Provider: 11/26/19 11:47 Source: EMS Limitations: no limitations - History of Present Illness Is the patient presenting with stroke symptoms?: Yes Last Known Well Date: 11/25/19 (4PM) Initial Comments: 49 year male presenting for left leg tingling. Patient states for the past day he has had left leg tingling he states that it feels slightly different when the left leg is palpated in comparison to the right she states initially of sensation in his left arm as well however this subsided. Patient denies any headache chest pain shortness breath nausea vomiting epigastric pain does a visual changes diplopia weakness of the lower or upper extremities. Patient denies any dizziness or loss of hearing. Patient denies any other complaints at this time upon arrival patient appears well signs of acute distress. - Related Data Home Medications: Home Medications Medication Instructions Recorded Confirmed Hydrocodone/Acetaminophen [[place] 1 tab PO TID PRN 07/03/18 11/26/19 5-325] Ibuprofen [Motrin] 800 mg PO Q6H PRN 07/03/18 11/26/19 Loratadine [Claritin] 10 mg PO DAILY PRN 07/05/18 11/26/19 Previous Rx's Medication Instructions Recorded Aspirin 325 mg PO DAILY #30 tab 11/27/19 Atorvastatin Calcium [Lipitor] 10 mg PO HS #30 tab 11/27/19 Allergies/Adverse Reactions: Allergies Allergy/AdvReac Type Severity Reaction Status Date / Time No Known Allergies Allergy Verified 11/26/19 13:38 Review of Systems ROS Statement: Those systems with pertinent positive or pertinent negative responses have been documented in the HPI. ROS Other: All systems not noted in ROS Statement are negative. General Exam - General Exam Comments Initial Comments: General: The patient is awake and alert, in no distress Eye: +3 mm pupils are equal, round and reactive to light, extra-ocular movements are intact. No nystagmus. There is normal conjunctiva bilaterally. No signs of icterus. Ears, nose, mouth and throat: There are moist mucous membranes and no oral lesions. Neck: The neck is supple, there is no tenderness or JVD. Cardiovascular: There is a regular rate and rhythm. No murmur, rub or gallop is appreciated. Respiratory: Lungs are clear to auscultation, respirations are non-labored, breath sounds are equal. No wheezes, stridor, rales, or rhonchi. Gastrointestinal: Soft, non-distended, non-tender abdomen without masses or organomegaly noted. There is no rebound or guarding present. Musculoskeletal: Normal ROM, no tenderness. Strength 5/5. Sensation intact. Pulses equal bilaterally 2+. Neurological: A&O x 3. CN II-XII intact, memory intact to immediately, intermediate and bed bug exterminator recall. Able to follow simple verbal. Able to name a common object (pen). High quality, labial (pa) and lingual (la) speech. Low quality posterior pharynx/larynx (ga) voice sounds. Able to express general knowledge (days in a week). No hemineglect or inattention noted. Finger agnosia (-) and spatially oriented (identified L index finger touched R shoulder with L index finger). Light touch sensation present over the face, chest, abdomen, back, UE bilaterally. States there is some slightly decrease in sensation of the left LE in comparison wtih the right. Able to localize point during point localization b/l and extinction. No visible bulk atrophy, hypertrophy, fasciculations, or myoclonus of the UE or LE b/l. Full PROM in UE and LE b/l. Bilateral muscle strength 5/5 for the following muscles: deltoid, biceps, triceps, brachioradialis, wrist extensors/flexor, hip flexor, hip abductors/adductors, hamstrings, quadriceps, feet dorsiflexors/plantar flexors. Finger to nose, finger to the examiners finger, and heel to mcadams coordinated and accurate b/l. Coordinated and even demonstration of hand flip, finger to thumb, and toe tap b/l. Gait is coordinated and even in stride with tandem. (-) pronator drift. No nuchal rigidity. Skin: Skin is warm and dry and no rashes or lesions are noted. Psychiatric: Cooperative, appropriate mood & affect, normal judgment. Limitations: no limitations Stroke MDM - Lab Data Result diagrams: 11/26/19 12:14 11/26/19 12:14 Lab Results 11/26/19 11/26/19 11/26/19 Range/Units 12:14 12:14 12:14 WBC 7.7 (3.8-10.6) k/uL RBC 4.90 (4.30-5.90) m/uL Hgb 14.3 (13.0-17.5) gm/dL Hct 44.5 (39.0-53.0) % MCV 90.8 (80.0-100.0) fL MCH 29.3 (25.0-35.0) pg MCHC 32.2 (31.0-37.0) g/dL RDW 14.0 (11.5-15.5) % Plt Count 249 (150-450) k/uL Neutrophils % 52 % Lymphocytes % 35 % Monocytes % 6 % Eosinophils % 4 % Basophils % 1 % Neutrophils # 4.0 (1.3-7.7) k/uL Lymphocytes # 2.7 (1.0-4.8) k/uL Monocytes # 0.4 (0-1.0) k/uL Eosinophils # 0.3 (0-0.7) k/uL Basophils # 0.1 (0-0.2) k/uL PT 10.1 (9.0-12.0) sec INR 1.0 (<1.2) APTT 23.5 (22.0-30.0) sec Sodium 138 (137-145) mmol/L Potassium 3.9 (3.5-5.1) mmol/L Chloride 102 (98-107) mmol/L Carbon Dioxide 27 (22-30) mmol/L Anion Gap 9 mmol/L BUN 10 (9-20) mg/dL Creatinine 0.77 (0.66-1.25) mg/dL Est GFR (CKD-EPI)AfAm >90 (>60 ml/min/1.73 sqM) Est GFR (CKD-EPI)NonAf >90 (>60 ml/min/1.73 sqM) Glucose 97 (74-99) mg/dL Estimated Ave Glu mg/dL Hemoglobin A1c (4.0-6.0) % Calcium 9.5 (8.4-10.2) mg/dL Total Bilirubin 0.4 (0.2-1.3) mg/dL AST 31 (17-59) U/L ALT 35 (4-49) U/L Alkaline Phosphatase 67 (38-126) U/L Troponin I (0.000-0.034) ng/mL Total Protein 7.2 (6.3-8.2) g/dL Albumin 4.3 (3.5-5.0) g/dL Triglycerides (<150) mg/dL Cholesterol (<200) mg/dL LDL Cholesterol, Calc (0-99) mg/dL HDL Cholesterol (40-60) mg/dL Coronavirus (PCR) (Not Detected) 11/26/19 11/26/19 11/26/19 Range/Units 12:14 12:14 12:14 WBC (3.8-10.6) k/uL RBC (4.30-5.90) m/uL Hgb (13.0-17.5) gm/dL Hct (39.0-53.0) % MCV (80.0-100.0) fL MCH (25.0-35.0) pg MCHC (31.0-37.0) g/dL RDW (11.5-15.5) % Plt Count (150-450) k/uL Neutrophils % % Lymphocytes % % Monocytes % % Eosinophils % % Basophils % % Neutrophils # (1.3-7.7) k/uL Lymphocytes # (1.0-4.8) k/uL Monocytes # (0-1.0) k/uL Eosinophils # (0-0.7) k/uL Basophils # (0-0.2) k/uL PT (9.0-12.0) sec INR (<1.2) APTT (22.0-30.0) sec Sodium (137-145) mmol/L Potassium (3.5-5.1) mmol/L Chloride (98-107) mmol/L Carbon Dioxide (22-30) mmol/L Anion Gap mmol/L BUN (9-20) mg/dL Creatinine (0.66-1.25) mg/dL Est GFR (CKD-EPI)AfAm (>60 ml/min/1.73 sqM) Est GFR (CKD-EPI)NonAf (>60 ml/min/1.73 sqM) Glucose (74-99) mg/dL Estimated Ave Glu mg/dL 123 Hemoglobin A1c 5.9 (4.0-6.0) % Calcium (8.4-10.2) mg/dL Total Bilirubin (0.2-1.3) mg/dL AST (17-59) U/L ALT (4-49) U/L Alkaline Phosphatase (38-126) U/L Troponin I <0.012 (0.000-0.034) ng/mL Total Protein (6.3-8.2) g/dL Albumin (3.5-5.0) g/dL Triglycerides 58 (<150) mg/dL Cholesterol 169 (<200) mg/dL LDL Cholesterol, Calc 63 (0-99) mg/dL HDL Cholesterol 94 H (40-60) mg/dL Coronavirus (PCR) (Not Detected) 11/26/19 Range/Units 14:36 WBC (3.8-10.6) k/uL RBC (4.30-5.90) m/uL Hgb (13.0-17.5) gm/dL Hct (39.0-53.0) % MCV (80.0-100.0) fL MCH (25.0-35.0) pg MCHC (31.0-37.0) g/dL RDW (11.5-15.5) % Plt Count (150-450) k/uL Neutrophils % % Lymphocytes % % Monocytes % % Eosinophils % % Basophils % % Neutrophils # (1.3-7.7) k/uL Lymphocytes # (1.0-4.8) k/uL Monocytes # (0-1.0) k/uL Eosinophils # (0-0.7) k/uL Basophils # (0-0.2) k/uL PT (9.0-12.0) sec INR (<1.2) APTT (22.0-30.0) sec Sodium (137-145) mmol/L Potassium (3.5-5.1) mmol/L Chloride (98-107) mmol/L Carbon Dioxide (22-30) mmol/L Anion Gap mmol/L BUN (9-20) mg/dL Creatinine (0.66-1.25) mg/dL Est GFR (CKD-EPI)AfAm (>60 ml/min/1.73 sqM) Est GFR (CKD-EPI)NonAf (>60 ml/min/1.73 sqM) Glucose (74-99) mg/dL Estimated Ave Glu mg/dL Hemoglobin A1c (4.0-6.0) % Calcium (8.4-10.2) mg/dL Total Bilirubin (0.2-1.3) mg/dL AST (17-59) U/L ALT (4-49) U/L Alkaline Phosphatase (38-126) U/L Troponin I (0.000-0.034) ng/mL Total Protein (6.3-8.2) g/dL Albumin (3.5-5.0) g/dL Triglycerides (<150) mg/dL Cholesterol (<200) mg/dL LDL Cholesterol, Calc (0-99) mg/dL HDL Cholesterol (40-60) mg/dL Coronavirus (PCR) Not Detected (Not Detected) - Thrombolytic Inclusion/Exclusion Thrombolytic Exclusion Criteria: Symptom Onset > 4.5 Hours - Medical Decision Making 49 yo male presnting for tingling of the left arm and leg. States arm subsided. Leg still slightly there is states when the left leg is palpated in comparison with the right there is a "slight" difference. CT revealed no acute event. Labs stable. Patient does not appear in distress. patient on reevaluation states that the sensation improved. Patient will be admitted for neurological evaluation and further testing. Patient case discussed with Dr. Barros who was agreeable to care plan and admission. Patient is agreeable to care plan and admission. Dr. Soriano accepted pt. Past Medical History Past Medical History: No Reported History Additional Past Medical History / Comment(s): C/O of abd. pain. History of Any Multi-Drug Resistant Organisms: None Reported Past Surgical History: Heart Catheterization, Heart Catheterization With Stent Additional Past Surgical History / Comment(s): Bilat. Carpal Tunnel. Cardiac cath. Past Anesthesia/Blood Transfusion Reactions: No Reported Reaction Past Psychological History: No Psychological Hx Reported Smoking Status: Never smoker Past Alcohol Use History: None Reported Past Drug Use History: None Reported - Past Family History Mother Family Medical History: No Reported History Course Vital Signs 11/26/19 11/26/19 11/26/19 11:38 14:12 15:40 Temperature 98.6 F 98.0 F Pulse Rate 85 72 73 Respiratory 18 18 18 Rate Blood Pressure 130/89 131/88 136/88 O2 Sat by Pulse 98 99 98 Oximetry Disposition Clinical Impression: Left leg numbness, TIA (transient ischemic attack) Disposition: ADMITTED IP TO THIS HOSP Condition: Stable Is patient prescribed a controlled substance at d/c from ED?: No Time of Disposition: 14:31 Decision to Admit Reason: Admit from EC Decision Date: 11/26/19 Decision Time: 14:31
[2019-11-26] MEDS ORDERED: HYDROcodone/APAP 5-325MG 1 EACH TAB PO PRN (15:39)
--- NOTE | 2019-11-26 15:44 | P.HPIM ---
History of Present Illness 49-year-old male came in with complains of tingling and numbness in the left side of the body including left hand and left leg started yesterday night at 10 PM which improved and presently only has been tingling in the left foot dorsal aspect and left elbow area and left fifth finger. Patient denied any fever chills patient denied any seizure-like activity denied any headache nausea vomiting. Patient denied any visual problems or any weakness. Patient is not a smoker patient had any history of hypertension that is what is her hyperlipidemia Review of Systems REVIEW OF SYSTEMS: CONSTITUTIONAL: No fever, no malaise, no fatigue. HEENT: No recent visual problems or hearing problems. Denied any sore throat. CARDIOVASCULAR: No chest pain, orthopnea, PND, no palpitations, no syncope. PULMONARY: No shortness of breath, no cough, no hemoptysis. GASTROINTESTINAL: No diarrhea, no nausea, no vomiting, no abdominal pain. NEUROLOGICAL: No headaches, no numbness. HEMATOLOGICAL: Denies any bleeding or petechiae. GENITOURINARY: Denies any burning micturition, frequency, or urgency. MUSCULOSKELETAL/RHEUMATOLOGICAL: Denies any joint pain, swelling, or any muscle pain. ENDOCRINE: Denies any polyuria or polydipsia. The rest of the 14-point review of systems is negative. Past Medical History Past Medical History: No Reported History Additional Past Medical History / Comment(s): C/O of abd. pain. History of Any Multi-Drug Resistant Organisms: None Reported Past Surgical History: Heart Catheterization, Heart Catheterization With Stent Additional Past Surgical History / Comment(s): Bilat. Carpal Tunnel. Cardiac cath. Past Anesthesia/Blood Transfusion Reactions: No Reported Reaction Past Psychological History: No Psychological Hx Reported Smoking Status: Never smoker Past Alcohol Use History: None Reported Past Drug Use History: None Reported - Past Family History Mother Family Medical History: No Reported History Medications and Allergies Home Medications Medication Instructions Recorded Confirmed Type Hydrocodone/Acetaminophen [[place] 1 tab PO TID PRN 07/03/18 11/26/19 History 5-325] Ibuprofen [Motrin] 800 mg PO Q6H PRN 07/03/18 11/26/19 History Loratadine [Claritin] 10 mg PO DAILY PRN 07/05/18 11/26/19 History Allergies Allergy/AdvReac Type Severity Reaction Status Date / Time No Known Allergies Allergy Verified 11/26/19 13:38 Physical Exam Vitals: Vital Signs Temp Pulse Resp BP Pulse Ox 11/26/19 14:12 72 18 131/88 99 11/26/19 11:38 98.6 F 85 18 130/89 98 Intake and Output 11/26/19 11/26/19 11/26/19 06:59 14:59 22:59 Other: Weight 104.326 kg PHYSICAL EXAMINATION: GENERAL: The patient is alert and oriented x3, not in any acute distress. Well developed, well nourished. HEENT: Pupils are round and equally reacting to light. EOMI. No scleral icterus. No conjunctival pallor. Normocephalic, atraumatic. No pharyngeal erythema. No thyromegaly. CARDIOVASCULAR: S1 and S2 present. No murmurs, rubs, or gallops. PULMONARY: Chest is clear to auscultation, no wheezing or crackles. ABDOMEN: Soft, nontender, nondistended, normoactive bowel sounds. No palpable organomegaly. MUSCULOSKELETAL: No joint swelling or deformity. EXTREMITIES: No cyanosis, clubbing, or pedal edema. NEUROLOGICAL: Gross neurological examination did not reveal any focal deficits. reflexes are within normal limits sensory exam was not done SKIN: No rashes. Results CBC & Chem 7: 11/26/19 12:14 11/26/19 12:14 Assessment and Plan Plan: -possibly a by pure sensory TIAinvolving the right thalamus: Symptoms of improving will order a carotid Doppler and echocardiogram. We'll also obtain lipid panel patient received aspirin in ER and I believe that initiation of of MRI to neurology if needed.patient's symptoms are improving only has minimal tingling numbness at this time. Computed tomography scan of the head did not show any significant abnormality. had previous smoking history quit 4months ago. -rule out hyperlipidemia
--- NOTE | 2019-11-26 16:45 | US ---
EXAMINATION TYPE: US carotid duplex BILAT DATE OF EXAM: 11/26/2019 COMPARISON: NONE CLINICAL HISTORY: 49-year-old male CVA. Left side numbness. No HTN. No hx of TIA. TECHNIQUE: Carotid duplex ultrasound examination. Indirect Doppler criteria was utilized. FINDINGS: EXAM MEASUREMENTS: RIGHT: Peak Systolic Velocity (PSV) cm/sec ----- Right CCA: 68.6 ----- Right ICA: 104.3 ----- Right ECA: 108.1 ICA/CCA ratio: 1.5 RIGHT: End Diastole cm/sec ----- Right CCA: 17.1 ----- Right ICA: 33.1 ----- Right ECA: 17.6 LEFT: Peak Systolic Velocity (PSV) cm/sec ----- Left CCA: 88.8 ----- Left ICA: 106.9 ----- Left ECA: 91.8 ICA/CCA ratio: 1.2 LEFT: End Diastole cm/sec ----- Left CCA: 25.4 ----- Left ICA: 40.9 ----- Left ECA: 11.5 VERTEBRALS (direction of flow): Right Vertebral: Antegrade Left Vertebral: Antegrade Rhythm: Normal [employer] Electrical [employer]er notes: No elevated velocities or significant atherosclerotic change seen on either side. IMPRESSION: No hemodynamically significant ICA stenosis on either side. Criteria for Assigning % of Stenosis / Diameter reduction (Estimation based on the indirect measurements of the internal carotid artery velocities (ICA PSV). 1. Normal (no stenosis)=ICA PSV < 125 cm/s: ratio < 2.0: ICA EDV<40 cm/s. 2. Less than 50% stenosis=ICA PSV < 125 cm/s: ratio < 2.0: ICA EDV<40 cm/s. 3. 50 to 69% stenosis=ICA PSV of 125 to 230 cm/s: ration 2.0 ? 4.0: ICA EDV 40-100 cm/s. 4. Greater than 70% stenosis to near occlusion= ICA PSV > 230 cm/s: ratio > 4.0: ICA EDV > 100 cm/s. 5. Near occlusion= ICA PSV velocities may be low or undetectable: variable ratio and ICA EDV. 6. Total occlusion=unable to detect flow.
--- NOTE | 2019-11-26 17:38 | P.CNNES ---
History of Present Illness Consult date: 11/26/19 Requesting physician: Kira Lee Reason for Consult: Leg decreased sensation 1 day History of Present Illness: Patient is a 49-year-old male, who is otherwise very healthy. Patient states that yesterday at 10:30 PM he noticed sudden onset of numbness and tingling of the entire left arm and left leg, not involving the face. He just kept on pacing. The symptoms resolved in 1-1-1/2 hours. He did not sleep whole night. At 9:30 AM today, the symptoms came back with numbness and tingling of left arm and left leg. Patient got concerned, arrived to the ER at 11:37 AM. His vitals on arrival was blood pressure 130/89, pulse rate 85 and temperature 98.6. He states that his symptoms started improving and now he has residual numbness in the toes of the left foot, and left hand, only in the ulnar aspect and medial forearm up to the elbow. Denies any weakness, slurred speech facial droop. He has been having headache involving the left temporoparietal region since the symptoms started. Also feeling nauseous, but no vomiting. Denies any recent history of head or neck trauma in the last 6 months. Does not see any chiropractors. Patient underwent CT head negative for acute process. Chest x-ray showed hypoventilatory change without definite acute process. Patient had normal EKG, with right axis deviation. Ultrasound of the right lower leg 70 negative for DVT. Carotid Doppler showed no hemodynamically significant stenosis on either side. Patient denies history of diabetes, hypertension. He was a light smoker, smoking about 1-1/2 pack per week for 6-7 years, quit 1 month ago. Denies any a lcohol or drugs. Patient does not take any antiplatelet medication at home. Review of Systems Denies chest pain shortness of breath wheezing or cough. Denies any abdominal pain, diarrhea. He does have some nausea. All other review of systems completely unremarkable. Denies any problems with vision hoarseness sore throat or dysphagia. Past Medical History Past Medical History: No Reported History Additional Past Medical History / Comment(s): C/O of abd. pain. History of Any Multi-Drug Resistant Organisms: None Reported Past Surgical History: Heart Catheterization, Heart Catheterization With Stent Additional Past Surgical History / Comment(s): Bilat. Carpal Tunnel. Cardiac cath. Past Anesthesia/Blood Transfusion Reactions: No Reported Reaction Past Psychological History: No Psychological Hx Reported Smoking Status: Never smoker Past Alcohol Use History: None Reported Past Drug Use History: None Reported - Past Family History Mother Family Medical History: No Reported History Medications and Allergies Home Medications Medication Instructions Recorded Confirmed Type Hydrocodone/Acetaminophen [[place] 1 tab PO TID PRN 07/03/18 11/26/19 History 5-325] Ibuprofen [Motrin] 800 mg PO Q6H PRN 07/03/18 11/26/19 History Loratadine [Claritin] 10 mg PO DAILY PRN 07/05/18 11/26/19 History Allergies Allergy/AdvReac Type Severity Reaction Status Date / Time No Known Allergies Allergy Verified 11/26/19 13:38 Physical Examination - Vital Signs Vital Signs: Vital Signs Temp Pulse Resp BP Pulse Ox 11/26/19 15:40 98.0 F 73 18 136/88 98 11/26/19 14:12 72 18 131/88 99 11/26/19 11:38 98.6 F 85 18 130/89 98 Intake and Output 11/26/19 11/26/19 11/26/19 06:59 14:59 22:59 Other: Weight 104.326 kg On examination patient is a middle aged Afro-[place] male, in no distress. Patient is alert awake oriented to time place and person. Speech and language functions are normal. Attention and concentration and fund of knowledge is adequate. On cranial nerve examination pupils are round and reactive to light, visual hartman are full on confrontation, extraocular muscles are intact with no nystagmus. Face is symmetric, tongue protrudes the midline. Palatal elevation and sensation normal. Hearing and shoulder shrug normal. On muscle strength testing there is no pronator drift and the strength is normal in arms and legs distally and proximally. Reflexes are somewhat diminished and plantars downgoi ng. Sensory touch is decreased in the left leg as compared to the right. It is equal in the upper limbs. Temperature is equal bilaterally. No ataxia for [id number] or [id number] testing. Tone and bulk of muscles normal. Gait deferred. There is no obvious bruit, S1 and S2 audible. Peripheral pulses present. No edema. Abdomen soft nontender. Chest is clear. Results - Laboratory Findings CBC and BMP: 11/26/19 12:14 11/26/19 12:14 Assessment and Plan Assessment: * 49-year-old male admitted with 2 episodes of left-sided numbness and tingling involving the left arm and leg. Patient had TIA last night, with symptoms completely resolved in 1-1/2 hours. This morning symptoms have reappeared, improved since onset, but not resolved yet. Probable CVA, rule out thalamic lacune. Plan: * MRI of the brain to evaluate for an acute stroke, MRA of head. * Carotid Doppler showed no stenosis. * Agree with checking 2-D echo. * Fasting a.m. lipid panel and hemoglobin A1c. * Continue aspirin 325 mg daily. * Telemetric monitoring rule out arrhythmia. * We will follow.
[2019-11-26 19:46] VITALS: RESP 16
[2019-11-27 00:47] LABS: Hemoglobin A1C 5.9 % (4.0-6.0)
[2019-11-27 03:55] LABS: Cholesterol 169 mg/dL (<200); HDL Cholesterol 94 mg/dL (40-60); LDL Cholesterol,Calculated 63 mg/dL (0-99); Triglycerides 58 mg/dL (<150)
[2019-11-27] MEDS ORDERED: ASPIRIN 325 MG TAB PO SCH (09:00)
[2019-11-27] MEDS ORDERED: ONDANSETRON 4 MG/2 ML VIAL IVP PRN (09:09)
--- NOTE | 2019-11-27 11:24 | P.DS ---
Providers Date of admission: 11/26/19 16:28 Attending physician: Oswald Soriano Consults: 11/26/19 14:20 Consult Physician Routine Consulting Provider: Warner Allan Consult Reason/Comments: leg decreased sensation x 1day Do you want consulting provider notified?: Yes Primary care physician: Stated None Hospital Course: Patient came in with left-sided tingling numbness possibly secondary to thalamic TIA thalamic stroke, MRI is pending after the MRI patient will be discharged all the workup including carotid Doppler is negative patient has an echo pending as well. After the MRI patient will be discharged on a low-dose of statin patient's LDL is only 68 and 325 aspirin. PHYSICAL EXAMINATION: GENERAL: The patient is alert and oriented x3, not in any acute distress. Well developed, well nourished. HEENT: Pupils are round and equally reacting to light. EOMI. No scleral icterus. No conjunctival pallor. Normocephalic, atraumatic. No pharyngeal erythema. No thyromegaly. CARDIOVASCULAR: S1 and S2 present. No murmurs, rubs, or gallops. PULMONARY: Chest is clear to auscultation, no wheezing or crackles. ABDOMEN: Soft, nontender, nondistended, normoactive bowel sounds. No palpable organomegaly. MUSCULOSKELETAL: No joint swelling or deformity. EXTREMITIES: No cyanosis, clubbing, or pedal edema. NEUROLOGICAL: Gross neurological examination did not reveal any focal deficits. SKIN: No rashes. For rest of the medical problems and has physician course please refer to the HPI from yesterday Patient Condition at Discharge: Stable Plan - Discharge Summary New Discharge Prescriptions: New Aspirin 325 mg PO DAILY #30 tab Atorvastatin Calcium [Lipitor] 10 mg PO HS #30 tab No Action Ibuprofen [Motrin] 800 mg PO Q6H PRN PRN Reason: Pain Hydrocodone/Acetaminophen [[place] 5-325] 1 tab PO TID PRN PRN Reason: Pain Loratadine [Claritin] 10 mg PO DAILY PRN PRN Reason: Allergy Symptoms Discharge Medication List Hydrocodone/Acetaminophen [[place] 5-325] 1 tab PO TID PRN 07/03/18 [History] Ibuprofen [Motrin] 800 mg PO Q6H PRN 07/03/18 [History] Loratadine [Claritin] 10 mg PO DAILY PRN 07/05/18 [History] Aspirin 325 mg PO DAILY #30 tab 11/27/19 [Rx] Atorvastatin Calcium [Lipitor] 10 mg PO HS #30 tab 11/27/19 [Rx] Follow up Appointment(s)/Referral(s): Urbano Robles MD [REFERRING] - 1 Week Discharge Disposition: HOME SELF-CARE
[2019-11-27 13:01] VITALS: BP 138/89; PULSE 68; TEMP 97.6
--- NOTE | 2019-11-27 15:30 | MR ---
EXAMINATION TYPE: MR angio head wo con DATE OF EXAM: 11/27/2019 COMPARISON: NONE HISTORY: CVA. Acute onset neurodeficit on admission one day earlier. TECHNIQUE: Time of flight images focusing on the [place] were performed without contrast.. 2-D and 3-D postprocessing imaging is performed on an independent workstation.. FINDINGS: There is slightly larger or dominant left vertebral artery. Vertebral arteries are patent t o basilar junction. There are patent bilateral posterior communicating arteries. There is no signific ant focal stenosis or aneurysmal change in the posterior circulation. Images of the anterior circulation show small caliber patent anterior communicating artery. There is no significant focal stenosis or aneurysmal change seen. IMPRESSION: No significant stenosis or aneurysmal change at the level of the [place].
--- NOTE | 2019-11-27 15:49 | MR ---
EXAMINATION TYPE: MR brain wo con DATE OF EXAM: 11/27/2019 COMPARISON: CT brain from yesterday. HISTORY: CVA, acute onset neuro deficit one day earlier. Left-sided numbness. TECHNIQUE: Multiplanar, multisequence imaging of the brain and brainstem is performed without IV cont rast. FINDINGS: Diffusion weighted images demonstrate no evidence of a recent infarct or other diffusion abnormality. There is no worrisome extra-axial fluid collection. The ventricular system and cisternal spaces are normal in size and appearance. The brain volume is age appropriate. There are scattered foci of T2 h yperintensity seen throughout the white matter bilaterally. I do estimate roughly 30-40 scattered les ions of varying size and shape. For reference there is a 6 x 5 mm deep right frontal lesion I axial i mage 23. Lesions nonspecific in appearance and distribution. Midline structures demonstrate normal morphology. The craniocervical junction appears within normal limits. Normal vascular flow voids are present. The visualized sinuses are clear and the globes are i ntact. IMPRESSION: No MRI evidence for recent infarct. Fairly moderate nonspecific white matter changes in p atient of this age with extremity numbness demyelinating disease needs to be excluded among the possi ble broad differential. Correlate clinically.
--- NOTE | 2019-11-27 16:00 | ECHOF ---
Referral Reason:stroke MEASUREMENTS -------- HEIGHT: 170.2 cm WEIGHT: 103.0 kg BP: 124/78 IVSd: 1.4 cm (0.6 - 1.1) LVIDd: 4.2 cm (3.9 - 5.3) LVPWd: 1.2 cm (0.6 - 1.1) IVSs: 2.1 cm LVIDs: 2.7 cm LVPWs: 1.8 cm LA Diam: 3.9 cm (2.7 - 3.8) RVIDd: 3.4 cm (< 3.3) LAESV Index (A-L): 28.32 ml/m Ao Diam: 3.4 cm (2.0 - 3.7) AV Cusp: 2.5 cm (1.5 - 2.6) EPSS: 0.1 cm MV E Danial: 0.81 m/s MV DecT: 212 ms MV A Danial: 0.60 m/s MV E/A Ratio: 1.35 RAP: 5.00 mmHg RVSP: 20.32 mmHg MV EF SLOPE: 122.49 mm/s (70 - 150) MV EXCURSION: 21.15 mm (> 18.000) FINDINGS -------- Sinus rhythm. This was a technically good study. The left ventricular size is normal. There is moderate concentric left ventricular hypertrophy. O verall left ventricular systolic function is normal with, an EF between 60 - 65 %. The right ventricle is mildly enlarged. Normal LA size by volume 22+/-6 ml/m2. The right atrium is normal in size. Interatrial and interventricular septum intact. The aortic valve is trileaflet and appears structurally normal. Mild mitral regurgitation is present. Mild tricuspid regurgitation present. Right ventricular systolic pressure is normal at < 35 mmHg. There is no pulmonic regurgitation present. The aortic root size is normal. Normal inferior vena cava with normal inspiratory collapse consistent with estimated right atrial pre ssure of 5 mmHg. The inferior vena cava is mildly dilated. There is no pericardial effusion. CONCLUSIONS -------- 1. Sinus rhythm. 2. This was a technically good study. 3. The left ventricular size is normal. 4. There is moderate concentric left ventricular hypertrophy. 5. Overall left ventricular systolic function is normal with, an EF between 60 - 65 %. 6. The right ventricle is mildly enlarged. 7. Normal LA size by volume 22+/-6 ml/m2. 8. The right atrium is normal in size. 9. Interatrial and interventricular septum intact. 10. The aortic valve is trileaflet and appears structurally normal. 11. Mild mitral regurgitation is present. 12. Mild tricuspid regurgitation present. 13. Right ventricular systolic pressure is normal at < 35 mmHg. 14. There is no pulmonic regurgitation present. 15. The aortic root size is normal. 16. Normal inferior vena cava with normal inspiratory collapse consistent with estimated right atrial pressure of 5 mmHg. 17. The inferior vena cava is mildly dilated. 18. There is no pericardial effusion. MOLD BUILDER: Alissa Delgado RDCS
--- NOTE | 2019-11-27 18:36 | P.PN ---
Subjective Progress Note Date: 11/27/19 Patient feeling much better. The numbness in the left leg has resolved. Numbness in the left arm has mostly resolved, only present in the left ulnar aspect of the hand. Gait is normal no other symptoms. I had seen patient before MRI was resulted. Objective - Vital Signs Vital signs: Vital Signs Temp 97.6 F 11/27/19 12:55 Pulse 68 11/27/19 12:55 Resp 16 11/27/19 12:55 BP 138/89 11/27/19 12:55 Pulse Ox 99 11/27/19 12:55 Intake & Output 11/26/19 11/27/19 11/27/19 18:59 06:59 18:59 Intake Total 916 873 1063 Balance 258 475 2306 Weight 104.326 kg 103.2 kg Intake: Oral [phone] Other: # Voids 0 1 1 # Bowel Movements 0 - Exam Nonfocal. - Labs CBC & Chem 7: 11/26/19 12:14 11/26/19 12:14 Labs: Abnormal Lab Results - Last 24 Hours (Table) 11/26/19 Range/Units 12:14 HDL Cholesterol 94 H (40-60) mg/dL Assessment and Plan Assessment: * 49-year-old male admitted with 2 episodes of left-sided numbness and tingling involving the left arm and leg. Probable TIA. No evidence of CVA noted on the MRI. Plan: * MRI of the brain negative for any CVA. Fairly moderate nonspecific white matter changes. In patient of this age, and with extremity numbness, demyelinating disease needs to be excluded among the possible broad differential.. (I had seen patient before the report of MRI was available). I reviewed the MRI of the computer, and agree with the findings. Patient may need further evaluation of demyelinating disease, particularly if symptoms reappear. Patient to follow up with local neurologist in 1 week. (Tried to contact patient on the phone listed [phone], to inform about this concern, but the line was constantly busy). * MRA of head showed no significant stenosis, aneurysm. * Carotid Doppler showed no stenosis. * 2-D echo showed sinus rhythm, moderate concentric LVH. EF is 60-65%. Normal left atrial size. * Fasting a.m. lipid panel showed cholesterol 169, LDL 63, HDL 94 and triglycerides 58. Hemoglobin A1c 5.9. * Continue aspirin 325 mg daily and Lipitor 10 mg daily. * Clear for discharge from neurology point.
== END 2019-11-27 17:39 | disposition home or self-care (01) ==
LOC: EC 11:37 → 1SOBS 14:19 → 3SCARD 14:29 → EC 16:27 → INTOOBSV 16:28 → 3SCARD 16:28 → UNDODISIN 11-27 17:39
PROVIDERS: ADMIT Internal Medicine; ATTEND Internal Medicine
DX: G45.9 Transient cerebral ischemic attack, unspecified (principal); Z87.891 Personal history of nicotine dependence; Z95.5 Presence of coronary angioplasty implant and graft; Z98.890 Other specified postprocedural states; Z03.818 Encounter for observation for suspected exposure to other biological agents ruled out; Z79.82 Long term (current) use of aspirin; Z79.899 Other long term (current) drug therapy
CPT/HCPCS: 99285; 36415; 93005; 93306; 97161; 97165; 80061; 80053; 84484; 85025; 85610; 85730; 83036; 71046; 93971; 93880; 70450; 70544; 70551; G0378 ×2; U0003

== ENCOUNTER 2019-12-03 05:18 | Emergency (ER) | payer OTHER ==
[2019-12-03 05:26] LABS: Glucose,Whole Blood 103 mg/dL (75-99)
--- NOTE | 2019-12-03 06:18 | ED ---
General Adult HPI - General Chief complaint: Neuro Symptoms/Deficit Stated complaint: Rt arm issues Time Seen by Provider: 12/03/19 06:04 Source: patient, EMS, RN notes reviewed, old records reviewed Mode of arrival: EMS Limitations: no limitations - History of Present Illness Initial comments: Patient is a 49-year-old male who presents emergency department today with awakening with right arm numbness tingling and stiffness. He reports that he was recently admitted to the hospital for TIA when he had a similar episode involving his left leg and left arm. Patient reports that when that occurred he had a headache and had persistent symptoms for 2 hours. Patient reports that he woke with no headache today. He does question if he slept on his arm wrong. Patient states that he took an ambulance to the emergency department but by the time the ambulance arrived and he is in the emergency department he is feeling much better and has no further paresthesias or weakness to the right arm. Patient states that he does sleep on his abdomen with his arms raised above his head. Patient denies any neck pain. He states he otherwise feels well this time and is asymptomatic. The Patient was recently admitted to the hospital he had a full neurological workup including brain MRI, carotid Doppler and echo which are all negative for any acute disease. - Related Data Home Medications Medication Instructions Recorded Confirmed Hydrocodone/Acetaminophen [[place] 1 tab PO TID PRN 07/03/18 11/26/19 5-325] Ibuprofen [Motrin] 800 mg PO Q6H PRN 07/03/18 11/26/19 Loratadine [Claritin] 10 mg PO DAILY PRN 07/05/18 11/26/19 Previous Rx's Medication Instructions Recorded Aspirin 325 mg PO DAILY #30 tab 11/27/19 Atorvastatin Calcium [Lipitor] 10 mg PO HS #30 tab 11/27/19 Allergies Allergy/AdvReac Type Severity Reaction Status Date / Time No Known Allergies Allergy Verified 11/26/19 13:38 Review of Systems ROS Statement: Those systems with pertinent positive or pertinent negative responses have been documented in the HPI. ROS Other: All systems not noted in ROS Statement are negative. Past Medical History Past Medical History: No Reported History Additional Past Medical History / Comment(s): C/O of abd. pain. History of Any Multi-Drug Resistant Organisms: None Reported Past Surgical History: Heart Catheterization, Heart Catheterization With Stent Additional Past Surgical History / Comment(s): Bilat. Carpal Tunnel. Cardiac cath. Past Anesthesia/Blood Transfusion Reactions: No Reported Reaction Date of Last Stent Placement:: 2017 Past Psychological History: No Psychological Hx Reported Smoking Status: Never smoker Past Alcohol Use History: None Reported Past Drug Use History: None Reported - Past Family History Mother Family Medical History: No Reported History General Exam - General Exam Comments Initial Comments: 49-year-old male. Alert and oriented 3. No significant distress. Limitations: no limitations General appearance: alert, in no apparent distress Head exam: Present: atraumatic, normocephalic, normal inspection Eye exam: Present: normal appearance, PERRL, EOMI. Absent: scleral icterus, conjunctival injection, periorbital swelling ENT exam: Present: normal exam, mucous membranes moist Neck exam: Present: normal inspection. Absent: tenderness, meningismus, lymphadenopathy Respiratory exam: Present: normal lung sounds bilaterally. Absent: respiratory distress, wheezes, rales, rhonchi, stridor Cardiovascular Exam: Present: regular rate, normal rhythm, normal heart sounds. Absent: systolic murmur, diastolic murmur, rubs, gallop, clicks GI/Abdominal exam: Present: soft, normal bowel sounds. Absent: distended, tenderness, guarding, rebound, rigid Extremities exam: Present: normal inspection, full ROM, normal capillary refill. Absent: tenderness, pedal edema, joint swelling, calf tenderness Back exam: Present: normal inspection Neurological exam: Present: alert, oriented X3, CN II-XII intact Expanded Patient oriented to: Present: person, place, time Speech: Present: fluid speech Cranial nerves: EOM's Intact: Normal Cerebellar function: Finger to Nose: Normal Upper motor neuron: Pronator Drift: Normal Sensory exam: Upper Extremity Light Touch: Normal, Lower Extremity Light Touch: Normal Motor strength exam: RUE: 5, LUE: 5, RLE: 5, LLE: 5 Eye Response: (4) open spontaneously Motor Response: (6) obeys commands Verbal Response: (5) oriented Jewles Total: 15 Psychiatric exam: Present: normal affect, normal mood Skin exam: Present: warm, dry, intact, normal color. Absent: rash Course Vital Signs 12/03/19 05:20 Temperature 98.0 F Pulse Rate 79 Respiratory 17 Rate Blood Pressure 146/94 O2 Sat by Pulse 99 Oximetry Medical Decision Making - Medical Decision Making This is a 49-year-old male who presents emergency Department today for concerns for right arm paresthesias upon awakening. Patient believes he may have slept on the trunk. Symptoms lasted for 15-20 minutes upon awakening but no gone. Patient recently had full evaluation for TIAs the last 2 weeks. That was what made him concerned come here again. Patient upon arrival has full range of motion of the arm. Normal sensation distally. Patient has no other acute neurological deficits. He has no headache. Vital signs are stable. He was recently evaluated for the previous day and had carotid Dopplers which were unremarkable. Echocardiogram was reviewed and unremarkable as well as patient's brain MRI. Patient was at that time started on a low-dose statin and aspirin. I advised Patient to continue this. Patient states he feels well prefers to go to work. Patient advsied a close follow-up with primary care doctor. All questions were answered. - Lab Data Lab Results 12/03/19 Range/Units 05:23 POC Glucose (mg/dL) 103 H (75-99) mg/dL POC Glu Technical Instructor ID Manuelito Hines 12/03/19 06:22 EKG performed effectively mentions or sensory a rightward axis. EKG. Ventricular rate 75 beats per minute. Intervals 170 ms. QRS duration is 96 most seconds. QT QTc is 394/439 ms. Disposition Clinical Impression: Paresthesia of right arm Disposition: HOME SELF-CARE Condition: Good Instructions (If sedation given, give patient instructions): Paresthesia (ED) Additional Instructions: Please use medication as discussed from previous visit, aspirin and statin. Please follow up with family doctor if symptoms have not improved over the next two days. Please return to the emergency room if your symptoms increase or worsen or for any other concerns. Is patient prescribed a controlled substance at d/c from ED?: No Referrals: None,Stated [Primary Care Provider] - 1-2 days Time of Disposition: 06:17
[2019-12-03 06:26] VITALS: BP 133/98; PULSE 74; RESP 18; TEMP 97.9
== END 2019-12-03 06:26 | disposition home or self-care (01) ==
LOC: EC 05:18
DX: R20.2 Paresthesia of skin (principal); R20.0 Anesthesia of skin; Z95.5 Presence of coronary angioplasty implant and graft
CPT/HCPCS: 36415; 93005; 99284

== ENCOUNTER 2020-02-06 19:20 | Emergency (ER) | payer OTHER ==
[2020-02-06 19:54] VITALS: BP 144/96; PULSE 125; RESP 20; TEMP 98.5
== END 2020-02-06 22:10 | disposition left against medical advice (07) ==
LOC: EC 19:20
DX: E86.0 Dehydration (principal); R42 Dizziness and giddiness; Z53.21 Procedure and treatment not carried out due to patient leaving prior to being seen by health care provider
CPT/HCPCS: 99499

== ENCOUNTER 2020-03-16 17:13 | Emergency (ER) | payer OTHER ==
[2020-03-16 17:26] VITALS: BP 134/73; PULSE 70; RESP 18; TEMP 98.2
[2020-03-16] MEDS ORDERED: ACET/COD 300 MG/30 MG STARTER PACK 6 TAB BTL PO STA (17:36)
[2020-03-16] MEDS ORDERED: DIPH,PERTUS(ACELL)TETVAC-LF 0.5 ML VIAL IM ONE (17:37)
[2020-03-16] MEDS ORDERED: LIDOCAINE 1% INJ 10MG/ML (20 ML MDV) SQ ONE (17:37)
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
[2020-03-16] MEDS ORDERED: TOPICAL SKIN ADHESIVE 1 EACH AMP TOPICAL ONE (18:37)
[2020-03-16] MEDS ORDERED: CEPHALEXIN 500MG STARTER PACK 4 CAP BTL PO STA (18:43)
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
== END 2020-03-16 19:22 | disposition home or self-care (01) ==
LOC: EC 17:13
DX: S61.213A Laceration without foreign body of left middle finger without damage to nail, initial encounter (principal); S61.215A Laceration without foreign body of left ring finger without damage to nail, initial encounter; S61.217A Laceration without foreign body of left little finger without damage to nail, initial encounter; S61.211A Laceration without foreign body of left index finger without damage to nail, initial encounter; R10.9 Unspecified abdominal pain; F17.200 Nicotine dependence, unspecified, uncomplicated; Z23 Encounter for immunization; X99.1XXA Assault by knife, initial encounter
CPT/HCPCS: 73130; 90715; 99284; 12002; 90471; J2001